=== PATIENT | female | born 1950 | race Caucasian/White ===

== ENCOUNTER → 2017-12-30 14:31 | Outpatient (CLI) | payer BC, MEDICARE, SELFPAY ==
[2017-12-30 15:59] LABS: Absolute Lymphocyte Count 3.05 X10^3/ul (0.83-4.51); Absolute Neutrophil Count 6.2 X10^3/uL (2.0-7.7); Basophil# 0.05 X10^3/uL; Basophil% 0.5 % (0-1); Eosinophil# 0.24 X10^3/uL; Eosinophils% 2.3 % (0-5); Hematocrit 47.7 % (37-47); Hemoglobin 16.3 g/dl (12.0-15.0); Lymphocyte # 3.05 X10^3/ul (4.0); Lymphocyte % 29.4 % (19-41); Mean Corp Hgb Conc 34.2 g/gl (32-36); Mean Corpuscular Hgb 30.6 pg (27.0-32.0); Mean Corpuscular Volume 89.7 fL (81-99); Mean Platelet Vol. 8.7 fl (6.2-12.0); Monocyte# 0.74 X10^3/uL; Monocyte% 7.1 % (0-10); Neutrophil # 6.23 X10^3/uL (2.7-7.7); Neutrophil % 60.2 % (47-70); Platelet Count 525 K/mm3 (150-450); RBC Distribution Width CV 14.9 % (11.6-14.6); RBC Distribution Width SD 48.8 fl (35.1-43.9); Red Blood Count 5.32 M/mm3 (4.2-5.4); White Blood Count 10.4 K/mm3 (4.4-11.0)
[2017-12-30 16:00] LABS: POSITIVE COUNT NO; POSITIVE DIFFERENTIAL NO; POSITIVE MORPHOLOGY NO
[2017-12-30 16:17] LABS: ALB/GLOB Ratio 0.8 RATIO (0.9-2.4); AST(SGOT) 19 U/L (15-37); Alanine Aminotransfer ALT/SGPT 32 U/L (13-56); Albumin, Serum 3.4 g/dL (3.2-5.0); Alkaline Phosphatase 128 U/L (45-117); Anion Gap 6 (5-15); BUN 10 mg/dL (7-18); BUN/Creat Ratio 13.5 RATIO (10-20); Chloride 104 mmol/L (98-107); Creatinine, Serum 0.74 mg/dL (0.55-1.02); EST Glomerular Filtration Rate 83 mL/min (>60); Est Glom Filt Rate - Afr Amer 100 mL/min (>60); Glucose 104 mg/dL (74-106); Potassium 4.1 mmol/L (3.5-5.1); Protein, Total 7.4 g/dL (6.4-8.2); Sodium Level 137 mmol/L (136-145)
== END ==
PROVIDERS: Family Provider Family Medicine; PCP Family Medicine; Visit Provider Internal Medicine Rheumatology
DX: M05.79 Rheumatoid arthritis with rheumatoid factor of multiple sites without organ or systems involvement (principal); F41.9 Anxiety disorder, unspecified; F32.89 Other specified depressive episodes; Z79.899 Other long term (current) drug therapy
CPT/HCPCS: 36415; 80053; 85025

== ENCOUNTER → 2018-02-12 15:03 | Outpatient (CLI) | payer MEDICARE, BC, SELFPAY ==
[2018-02-12 17:59] LABS: Anion Gap 10 (5-15); BUN 16 mg/dL (7-18); BUN/Creat Ratio 24.1 RATIO (10-20); Calcium,Total 9.1 mg/dL (8.5-10.1); Chloride 104 mmol/L (98-107); Creatinine, Serum 0.66 mg/dL (0.55-1.02); EST Glomerular Filtration Rate 94 mL/min (>60); Est Glom Filt Rate - Afr Amer 114 mL/min (>60); Glucose 75 mg/dL (74-106); Potassium 4.2 mmol/L (3.5-5.1); Sodium Level 139 mmol/L (136-145)
== END ==
PROVIDERS: Family Provider Family Medicine; PCP Family Medicine; Visit Provider Otolaryngology Otolaryngology/Facial Plastic Surgery
DX: M06.9 Rheumatoid arthritis, unspecified (principal); Z79.899 Other long term (current) drug therapy
CPT/HCPCS: 36415; 80048

== ENCOUNTER → 2018-03-18 14:50 | Outpatient (CLI) | payer MEDICARE, BC, SELFPAY ==
[2018-03-18 17:35] LABS: Absolute Lymphocyte Count 4.17 X10^3/ul (0.83-4.51); Absolute Neutrophil Count 5.5 X10^3/uL (2.0-7.7); Basophil# 0.04 X10^3/uL; Basophil% 0.4 % (0-1); Eosinophil# 0.23 X10^3/uL; Eosinophils% 2.2 % (0-5); Hemoglobin 15.7 g/dl (12.0-15.0); Lymphocyte # 4.17 X10^3/ul (4.0); Lymphocyte % 39.6 % (19-41); Mean Corp Hgb Conc 34.1 g/gl (32-36); Mean Corpuscular Hgb 30.7 pg (27.0-32.0); Mean Platelet Vol. 8.7 fl (6.2-12.0); Monocyte# 0.59 X10^3/uL; Monocyte% 5.6 % (0-10); Neutrophil # 5.48 X10^3/uL (2.7-7.7); Platelet Count 596 K/mm3 (150-450); RBC Distribution Width CV 14.6 % (11.6-14.6); RBC Distribution Width SD 47.4 fl (35.1-43.9); Red Blood Count 5.11 M/mm3 (4.2-5.4); White Blood Count 10.5 K/mm3 (4.4-11.0)
[2018-03-18 17:58] LABS: POSITIVE COUNT NO; POSITIVE DIFFERENTIAL NO; POSITIVE MORPHOLOGY NO
[2018-03-18 18:01] LABS: ALB/GLOB Ratio 0.8 RATIO (0.9-2.4); AST(SGOT) 50 U/L (15-37); Alanine Aminotransfer ALT/SGPT 67 U/L (13-56); Albumin, Serum 3.4 g/dL (3.2-5.0); Alkaline Phosphatase 120 U/L (45-117); Anion Gap 10 (5-15); BUN 14 mg/dL (7-18); BUN/Creat Ratio 17.7 RATIO (10-20); Chloride 103 mmol/L (98-107); Creatinine, Serum 0.79 mg/dL (0.55-1.02); EST Glomerular Filtration Rate 77 mL/min (>60); Est Glom Filt Rate - Afr Amer 93 mL/min (>60); Globulin 4.1 g/dL (2.2-4.2); Glucose 96 mg/dL (74-106); Potassium 3.8 mmol/L (3.5-5.1); Protein, Total 7.5 g/dL (6.4-8.2); Sodium Level 139 mmol/L (136-145)
== END ==
PROVIDERS: Family Provider Family Medicine; PCP Family Medicine; Visit Provider Internal Medicine Rheumatology
DX: M05.79 Rheumatoid arthritis with rheumatoid factor of multiple sites without organ or systems involvement (principal); Z79.899 Other long term (current) drug therapy; F41.9 Anxiety disorder, unspecified; F32.89 Other specified depressive episodes
CPT/HCPCS: 36415; 80053; 85025

== ENCOUNTER → 2018-04-21 09:35 | Outpatient (CLI) | payer BC, MEDICARE, SELFPAY ==
--- NOTE | 2018-04-21 09:42 | US_ITS ---
STUDY: ABDOMINAL ULTRASOUND - RIGHT UPPER QUADRANT REASON FOR VISIT: Female, 68 years old. ELEVATED LFTS TECHNIQUE: Ultrasound evaluation of the right upper quadrant was performed with real-time and static so-scale imaging. TECHNICAL QUALITY: Adequate. COMPARISON: None. FINDINGS: Liver: The liver measures 14.1 cm. There is normal echogenicity of the liver. The bile ducts are within normal limits. There is hepatic color flow. The direction of portal flow is hepatopetal. There is no demonstrated mass lesion. Gallbladder: Normal distended gallbladder. The gallbladder wall measures 3 mm. There is a negative sonographic Lion's sign. There is no pericholecystic fluid. There is biliary sludge dependent within the gallbladder. There are multiple echogenic structures within the gallbladder, consistent with multiple gallstones. Common Bile Duct (C.B.D.): The common bile duct measures 4 mm. Pancreas: Normal size of the head, body and tail of the pancreas. There is normal echogenicity of the pancreas. There is no demonstrated pancreatic mass or cyst. Right Kidney: Normal size of the right kidney. The right kidney measures 9.6x4x3.4 cm. Normal renal cortex. The right cortex measures 1.4 cm. There is no demonstrated renal mass or cyst. There is no right hydronephrosis. US/Liver IMPRESSION: There is biliary sludge dependent within the gallbladder. There are multiple echogenic structures within the gallbladder, consistent with multiple gallstones. Electronically Signed: Amilcar De Guzman MD at 16:47 EDT , Service support ,
[2018-04-21 12:45] LABS: ALB/GLOB Ratio 0.7 RATIO (0.9-2.4); AST(SGOT) 19 U/L (15-37); Alanine Aminotransfer ALT/SGPT 27 U/L (13-56); Albumin, Serum 2.8 g/dL (3.2-5.0); Alkaline Phosphatase 128 U/L (45-117); Anion Gap 12 (5-15); BUN 14 mg/dL (7-18); BUN/Creat Ratio 17.2 RATIO (10-20); Calcium,Total 8.6 mg/dL (8.5-10.1); Chloride 106 mmol/L (98-107); Creatinine, Serum 0.81 mg/dL (0.55-1.02); EST Glomerular Filtration Rate 74 mL/min (>60); Est Glom Filt Rate - Afr Amer 90 mL/min (>60); Globulin 4.3 g/dL (2.2-4.2); Glucose 79 mg/dL (74-106); Potassium 4.4 mmol/L (3.5-5.1); Protein, Total 7.1 g/dL (6.4-8.2); Sodium Level 139 mmol/L (136-145)
[2018-04-21 13:09] LABS: Absolute Lymphocyte Count 5.37 X10^3/ul (0.83-4.51); Basophil# 0.06 X10^3/uL; Basophil% 0.4 % (0-1); Eosinophil# 0.35 X10^3/uL; Eosinophils% 2.2 % (0-5); Hematocrit 45.3 % (37-47); Hemoglobin 14.7 g/dl (12.0-15.0); Lymphocyte # 5.37 X10^3/ul (4.0); Lymphocyte % 33.6 % (19-41); Mean Corp Hgb Conc 32.5 g/gl (32-36); Mean Corpuscular Hgb 29.5 pg (27.0-32.0); Monocyte# 1.11 X10^3/uL; Neutrophil # 9.02 X10^3/uL (2.7-7.7); Neutrophil % 56.5 % (47-70); Platelet Count 472 K/mm3 (150-450); RBC Distribution Width SD 45.4 fl (35.1-43.9); Red Blood Count 4.98 M/mm3 (4.2-5.4)
[2018-04-21 13:10] LABS: Differential Indicated SCAN CRITERIA MET; POSITIVE COUNT NO; POSITIVE DIFFERENTIAL YES; POSITIVE MORPHOLOGY NO
[2018-04-21 13:36] LABS: Platelet Estimate ADEQUATE (ADEQ); Red Cell Morphology NORM C+C NORMAL (NORM C&C)
== END ==
PROVIDERS: Family Provider Family Medicine; PCP Family Medicine; Visit Provider Internal Medicine Rheumatology
DX: M05.79 Rheumatoid arthritis with rheumatoid factor of multiple sites without organ or systems involvement (principal); Z79.899 Other long term (current) drug therapy; F41.9 Anxiety disorder, unspecified; F32.89 Other specified depressive episodes
CPT/HCPCS: 36415; 76705; 80053; 85025

== ENCOUNTER → 2018-06-14 13:19 | Outpatient (CLI) | payer MEDICARE, BC, SELFPAY ==
[2018-06-14 15:56] LABS: Absolute Lymphocyte Count 1.75 X10^3/ul (0.83-4.51); Absolute Neutrophil Count 10.4 X10^3/uL (2.0-7.7); Basophil# 0.02 X10^3/uL; Basophil% 0.2 % (0-1); Eosinophils% 0.8 % (0-5); Hematocrit 45.1 % (37-47); Hemoglobin 14.8 g/dl (12.0-15.0); Lymphocyte # 1.75 X10^3/ul (4.0); Lymphocyte % 13.7 % (19-41); Mean Corp Hgb Conc 32.8 g/gl (32-36); Mean Corpuscular Hgb 29.3 pg (27.0-32.0); Mean Corpuscular Volume 89.3 fL (81-99); Monocyte# 0.53 X10^3/uL; Monocyte% 4.1 % (0-10); Neutrophil # 10.39 X10^3/uL (2.7-7.7); Platelet Count 469 K/mm3 (150-450); RBC Distribution Width CV 15.2 % (11.6-14.6); RBC Distribution Width SD 48.2 fl (35.1-43.9); Red Blood Count 5.05 M/mm3 (4.2-5.4); White Blood Count 12.8 K/mm3 (4.4-11.0)
[2018-06-14 16:12] LABS: POSITIVE COUNT NO; POSITIVE DIFFERENTIAL NO; POSITIVE MORPHOLOGY NO
[2018-06-14 16:51] LABS: ALB/GLOB Ratio 0.7 RATIO (0.9-2.4); AST(SGOT) 23 U/L (15-37); Alanine Aminotransfer ALT/SGPT 31 U/L (13-56); Alkaline Phosphatase 123 U/L (45-117); Anion Gap 12 (5-15); BUN 10 mg/dL (7-18); BUN/Creat Ratio 12.9 RATIO (10-20); Calcium,Total 8.8 mg/dL (8.5-10.1); Chloride 104 mmol/L (98-107); Creatinine, Serum 0.78 mg/dL (0.55-1.02); EST Glomerular Filtration Rate 79 mL/min (>60); Est Glom Filt Rate - Afr Amer 95 mL/min (>60); Globulin 4.1 g/dL (2.2-4.2); Glucose 100 mg/dL (74-106); Potassium 3.8 mmol/L (3.5-5.1); Protein, Total 7.1 g/dL (6.4-8.2); Sodium Level 139 mmol/L (136-145)
== END ==
PROVIDERS: Family Provider Family Medicine; PCP Family Medicine; Visit Provider Internal Medicine Rheumatology
DX: M05.79 Rheumatoid arthritis with rheumatoid factor of multiple sites without organ or systems involvement (principal); F41.9 Anxiety disorder, unspecified; F32.89 Other specified depressive episodes; Z79.899 Other long term (current) drug therapy
CPT/HCPCS: 36415; 80053; 85025

== ENCOUNTER → 2018-09-08 11:55 | Outpatient (CLI) | payer MEDICARE, BC, SELFPAY ==
[2018-09-08 14:00] LABS: Absolute Lymphocyte Count 3.29 X10^3/ul (0.83-4.51); Absolute Neutrophil Count 7.5 X10^3/uL (2.0-7.7); Basophil# 0.07 X10^3/uL; Basophil% 0.6 % (0-1); Eosinophil# 0.33 X10^3/uL; Eosinophils% 2.8 % (0-5); Hematocrit 45.2 % (37-47); Hemoglobin 15.3 g/dl (12.0-15.0); Lymphocyte # 3.29 X10^3/ul (4.0); Lymphocyte % 27.7 % (19-41); Mean Corp Hgb Conc 33.8 g/gl (32-36); Mean Corpuscular Hgb 30.2 pg (27.0-32.0); Mean Corpuscular Volume 89.3 fL (81-99); Mean Platelet Vol. 8.8 fl (6.2-12.0); Monocyte# 0.66 X10^3/uL; Monocyte% 5.6 % (0-10); Neutrophil # 7.46 X10^3/uL (2.7-7.7); Neutrophil % 62.8 % (47-70); Platelet Count 500 K/mm3 (150-450); RBC Distribution Width CV 15.3 % (11.6-14.6); RBC Distribution Width SD 49.3 fl (35.1-43.9); Red Blood Count 5.06 M/mm3 (4.2-5.4); White Blood Count 11.9 K/mm3 (4.4-11.0)
[2018-09-08 14:01] LABS: POSITIVE COUNT NO; POSITIVE DIFFERENTIAL NO; POSITIVE MORPHOLOGY NO
[2018-09-08 14:17] LABS: ALB/GLOB Ratio 0.8 RATIO (0.9-2.4); AST(SGOT) 25 U/L (15-37); Alanine Aminotransfer ALT/SGPT 49 U/L (13-56); Alkaline Phosphatase 113 U/L (45-117); Anion Gap 8 (5-15); BUN 13 mg/dL (7-18); BUN/Creat Ratio 15.7 RATIO (10-20); Calcium,Total 8.8 mg/dL (8.5-10.1); Chloride 106 mmol/L (98-107); Creatinine, Serum 0.83 mg/dL (0.55-1.02); EST Glomerular Filtration Rate 73 mL/min (>60); Est Glom Filt Rate - Afr Amer 88 mL/min (>60); Globulin 3.9 g/dL (2.2-4.2); Glucose 111 mg/dL (74-106); Potassium 3.7 mmol/L (3.5-5.1); Protein, Total 6.9 g/dL (6.4-8.2); Sodium Level 142 mmol/L (136-145)
== END ==
PROVIDERS: Family Provider Family Medicine; PCP Family Medicine; Referring Provider Internal Medicine Rheumatology; Visit Provider Internal Medicine Rheumatology
DX: M05.79 Rheumatoid arthritis with rheumatoid factor of multiple sites without organ or systems involvement (principal); Z79.899 Other long term (current) drug therapy; F41.9 Anxiety disorder, unspecified; F32.89 Other specified depressive episodes
CPT/HCPCS: 36415; 80053; 85025

== ENCOUNTER → 2018-12-20 12:47 | Outpatient (CLI) | payer MEDICARE, BC, SELFPAY ==
[2018-12-20 14:04] LABS: Absolute Lymphocyte Count 4.16 X10^3/ul (0.83-4.51); Absolute Neutrophil Count 5.3 X10^3/uL (2.0-7.7); Basophil# 0.03 X10^3/uL; Basophil% 0.3 % (0-1); Eosinophil# 0.15 X10^3/uL; Eosinophils% 1.5 % (0-5); Hematocrit 47.1 % (37-47); Hemoglobin 15.8 g/dl (12.0-15.0); Lymphocyte # 4.16 X10^3/ul (4.0); Mean Corp Hgb Conc 33.5 g/gl (32-36); Mean Corpuscular Hgb 30.2 pg (27.0-32.0); Mean Corpuscular Volume 89.9 fL (81-99); Mean Platelet Vol. 8.8 fl (6.2-12.0); Monocyte# 0.51 X10^3/uL; Neutrophil # 5.27 X10^3/uL (2.7-7.7); Platelet Count 582 K/mm3 (150-450); RBC Distribution Width CV 14.4 % (11.6-14.6); RBC Distribution Width SD 47.2 fl (35.1-43.9); Red Blood Count 5.24 M/mm3 (4.2-5.4); White Blood Count 10.1 K/mm3 (4.4-11.0)
[2018-12-20 14:07] LABS: POSITIVE COUNT NO; POSITIVE DIFFERENTIAL NO; POSITIVE MORPHOLOGY NO
[2018-12-20 14:14] LABS: ALB/GLOB Ratio 0.8 RATIO (0.9-2.4); AST(SGOT) 25 U/L (15-37); Alanine Aminotransfer ALT/SGPT 26 U/L (13-56); Albumin, Serum 3.3 g/dL (3.2-5.0); Alkaline Phosphatase 108 U/L (45-117); Anion Gap 6 (5-15); BUN 10 mg/dL (7-18); BUN/Creat Ratio 11.5 RATIO (10-20); Calcium,Total 9.1 mg/dL (8.5-10.1); Chloride 105 mmol/L (98-107); Creatinine, Serum 0.87 mg/dL (0.55-1.02); EST Glomerular Filtration Rate 69 mL/min (>60); Est Glom Filt Rate - Afr Amer 83 mL/min (>60); Globulin 3.9 g/dL (2.2-4.2); Glucose 107 mg/dL (74-106); Potassium 3.5 mmol/L (3.5-5.1); Protein, Total 7.2 g/dL (6.4-8.2); Sodium Level 136 mmol/L (136-145)
== END ==
PROVIDERS: Family Provider Family Medicine; PCP Family Medicine; Referring Provider Internal Medicine Rheumatology; Visit Provider Internal Medicine Rheumatology
DX: M05.70 Rheumatoid arthritis with rheumatoid factor of unspecified site without organ or systems involvement (principal); Z79.899 Other long term (current) drug therapy; F41.9 Anxiety disorder, unspecified; F32.89 Other specified depressive episodes
CPT/HCPCS: 36415; 80053; 85025

== ENCOUNTER → 2019-01-24 16:30 | Outpatient (CLI) | payer MEDICARE, BC, SELFPAY ==
--- NOTE | 2019-01-24 17:07 | MRI_ITS ---
STUDY: MRI LEFT MIDFOOT WITHOUT AND WITH CONTRAST REASON FOR EXAM: Female, 68 years old. Lump on foot. Pain. TECHNIQUE: Standardized fat and water weighted pulse sequences were obtained in all 3 orthogonal planes before and after the administration of 9 cc of Gadavist contrast and intravenous. The area of clinical concern was identified by tissue marker (axial T2 series 5 images 16-19). COMPARISON: None. FINDINGS: Normal talonavicular articulation. Normal calcaneocuboid articulation. Normal navicular-cuneiform articulations. Normal intercuneiform articulations. Normal first tarsometatarsal articulation. Normal Lisfranc ligament. Normal second and third tarsometatarsal articulations. Normal cuboid fourth and cuboid fifth tarsometatarsal articulation. Normal first through fifth metatarsi. Normal tibialis anterior tendon. Normal extensor hallucis longus tendon. Normal extensor digitorum longus tendons. Normal peroneus longus tendon and distal insertion. Normal peroneus brevis tendon and distal insertion. Normal intrinsic muscles of the mid and forefoot region. Normal extensor digitorum brevis muscle. In the third intermetatarsal space, at the tissue marker, there is a large dumbbell shaped lesion which is intermediate to low signal intensity on the short TE images, slightly higher signal intensity on the inversion recovery images and enhances with contrast heterogeneously. The lesion measures approximately 2.6 cm x 0.8 cm x 2.7 cm. This lesion is most compatible with a large Goddard's neuroma (axial series 4, 5 and in images 13-22, sagittal series 7 and 8 images 14-17). 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 Electronically Signed: Vishal Molina MD at 10:52 EDT , Service support ,
== END ==
PROVIDERS: Family Provider Family Medicine; PCP Family Medicine; Referring Provider Podiatrist; Visit Provider Podiatrist
DX: M79.9 Soft tissue disorder, unspecified (principal); M79.672 Pain in left foot; D48.1 Neoplasm of uncertain behavior of connective and other soft tissue; M67.472 Ganglion, left ankle and foot
CPT/HCPCS: 73720; A9575

== ENCOUNTER → 2019-03-14 13:36 | Outpatient (CLI) | payer MEDICARE, BC, SELFPAY ==
[2019-03-14 15:59] LABS: Absolute Lymphocyte Count 4.01 X10^3/ul (0.83-4.51); Basophil# 0.03 X10^3/uL; Basophil% 0.3 % (0-1); Eosinophil# 0.28 X10^3/uL; Eosinophils% 2.5 % (0-5); Hematocrit 46.4 % (37-47); Hemoglobin 15.8 g/dl (12.0-15.0); Lymphocyte # 4.01 X10^3/ul (4.0); Lymphocyte % 36.2 % (19-41); Mean Corp Hgb Conc 34.1 g/gl (32-36); Mean Platelet Vol. 9.4 fl (6.2-12.0); Monocyte# 0.68 X10^3/uL; Monocyte% 6.1 % (0-10); Neutrophil # 6.03 X10^3/uL (2.7-7.7); Neutrophil % 54.5 % (47-70); Platelet Count 527 K/mm3 (150-450); RBC Distribution Width SD 48.4 fl (35.1-43.9); Red Blood Count 5.27 M/mm3 (4.2-5.4); White Blood Count 11.1 K/mm3 (4.4-11.0)
[2019-03-14 16:02] LABS: POSITIVE COUNT NO; POSITIVE DIFFERENTIAL NO; POSITIVE MORPHOLOGY NO
[2019-03-14 16:06] LABS: ALB/GLOB Ratio 0.8 RATIO (0.9-2.4); AST(SGOT) 26 U/L (15-37); Alanine Aminotransfer ALT/SGPT 40 U/L (13-56); Albumin, Serum 3.3 g/dL (3.2-5.0); Alkaline Phosphatase 119 U/L (45-117); Anion Gap 10 (5-15); BUN 16 mg/dL (7-18); BUN/Creat Ratio 18.1 RATIO (10-20); Calcium,Total 9.4 mg/dL (8.5-10.1); Chloride 104 mmol/L (98-107); Creatinine, Serum 0.88 mg/dL (0.55-1.02); EST Glomerular Filtration Rate 68 mL/min (>60); Est Glom Filt Rate - Afr Amer 82 mL/min (>60); Globulin 3.9 g/dL (2.2-4.2); Glucose 87 mg/dL (74-106); Protein, Total 7.2 g/dL (6.4-8.2); Sodium Level 140 mmol/L (136-145)
== END ==
PROVIDERS: Family Provider Family Medicine; PCP Family Medicine; Referring Provider Internal Medicine Rheumatology; Visit Provider Internal Medicine Rheumatology
DX: M05.70 Rheumatoid arthritis with rheumatoid factor of unspecified site without organ or systems involvement (principal); Z79.899 Other long term (current) drug therapy; F41.9 Anxiety disorder, unspecified; F32.89 Other specified depressive episodes
CPT/HCPCS: 36415; 80053; 85025

== ENCOUNTER 2019-04-29 05:27 | Day surgery (SDC) | payer MEDICARE, BC, SELFPAY ==
--- NOTE | 2019-04-26 14:38 | RAD_ITS ---
STUDY: X-RAY CHEST REASON FOR EXAM: Female, 69 years old. Preop for pelvic surgery TECHNIQUE: PA and lateral views of the chest. COMPARISON: None. FINDINGS: There is hyperinflation of the lungs consistent with chronic obstructive lung disease (COPD). There is no demonstrated pleural abnormality. Normal size heart. Normal mediastinum and karson. Normal visualized pulmonary arteries. Normal visualized aortic arch and descending thoracic aorta. There are diffuse degenerative changes of the visualized thoracic spine. Normal visualized ribs, clavicles, and shoulders. There is no demonstrated abnormality of the visualized soft tissue structures of the upper abdomen. RAD/Chest PA and Lateral IMPRESSION: Hyperexpanded lungs with chronic interstitial changes, no superimposed acute pulmonary process Electronically Signed: Julián Gorman MD at 15:05 EDT , Service support ,
--- NOTE | 2019-04-26 14:42 | EKG12_ITS ---
Test Reason : PREOP Blood Pressure : / mmHG Vent. Rate : 071 BPM Atrial Rate : 071 BPM P-R Int : 116 ms QRS Dur : 088 ms QT Int : 384 ms P-R-T Axes : 049 065 059 degrees QTc Int : 417 ms Normal sinus rhythm Possible Left atrial enlargement Borderline ECG Confirmed by ALLEN MOSQUEDA ([id number]), photography editor JOAN YAÑEZ ([id number]) on 04/28/2019 9:59:19 AM Referred By: Ifeoma Meng Confirmed By:ALLEN MOSQUEDA
[2019-04-29] VITALS (7 sets, daily range): BP systolic 143–170; BP diastolic 84–98; PULSE 70–80; RESP 16; TEMP 36.1–36.6; O2SAT 93–96; BMI 19.5
[2019-04-29] MEDS: Bupivacaine Mpf 0.5% 30 ML VIAL (07:30)
--- NOTE | 2019-04-29 07:30 | MASS_PTH ---
PATIENT: BHUPENDRA MANRIQUEZ LOC: [facility] [place] U#:[id number] AGE/SX: 69/F ROOM: RE04/29/[address]: Dr. Ifeoma Meng DPM : 1950 BED: DIS: 04/29/2019 SPEC #: [id number] RECD: 04/29/19 09:47 STATUS: EMANUEL MARY JO #: [id number] SEAN: 04/29/19 07:[address]: Ifeoma Meng DEPT: SURGICAL PATHOLOGY RECD BY: iDo Lopez ENTERED: 04/29/19 10:41 SP TYPE: Mass OTHR DR: Dr. Ralf Ospina III, MD Tissues: Skin of foot, NOS Procedures: PAS Fungus (control) Special Stain Group I Surgery Specimen Level IV AFB Stain (control) HEADER OPERATION: Foot, neuroma/soft tissue mass excision, biopsy PRE-OP DIAGNOSIS: Left foot neuroma/soft tissue mass TISSUE SUBMITTED: Left foot proximal soft tissue mass MICROSCOPIC DIAGNOSIS Soft tissue of left proximal foot, biopsy: Non-necrotizing granulomatous inflammation. Negative for acid-fast bacilli and fungal organisms. See comment. AM:katie 05/02/19 COMMENT AFB and GMS stains with matched controls were used in the evaluation of this case. Clinical correlation is necessary Case has been reviewed in consultation with Dr. Busby who concurs with the above diagnosis. IDC:[email or web address] MICROSCOPIC DESCRIPTION Palisading granulomas are present in the sections. GROSS DESCRIPTION Received in fixative is one container labeled with the patient's name and designated left foot proximal soft tissue mass. The specimen consists of a piece of hanna soft tissue measuring 3 x 1.5 x 0.5 cm. A suture is noted, however, the specimen is not oriented. The specimen is inked, serially sectioned and submitted entirely in two cassettes. / SJ:katie 04/29/19 TC:3 CPT: 18663, 62452 x2
--- NOTE | 2019-04-29 09:07 | DCINST_ITS ---
Discharge Diet: No Restrictions Weight Bearing Status: No weight bearing - use crutches from home. wear surgical shoe Keep extremity elevated above heart level: Left Leg Call your doctor if your incision/area has: Continuous Slow Oozing, Sudden Increased Bleeding, Increased Pain/ Swelling, Increased Redness, Foul Smelling Discharge, Swelling at the incision site Call your doctor if you observe: Fever of 101 or Higher, Calf discomfort, Uncontrolled pain Cleanse incision/area with: Keep Dressing Clean & Dry Allergies/Adverse Reactions: Allergies azithromycin [From Zithromax Z-Dakotah] Allergy (Verified 04/22/19 10:22) Rash Medications to take at Discharge Duloxetine Hcl [Cymbalta] 30 mg PO BID 04/22/19 Folic Acid 2 mg PO DAILY 04/22/19 Latanoprost 0.005% [Xalatan Opthalmic] 1 drp EACH EYE QHS 04/22/19 Methotrexate 12.5 mg PO FR 04/22/19 Prednisone 10 mg PO DAILY PRN 04/22/19 Primary Care Physician: Ralf Ospina III, MD [Primary Care Provider] - Test Results: Test results from this visit will be discussed in further detail at your follow- up appointment, if applicable. Please Follow Up With: Ifeoma Meng DPM When: [facility]; call [phone] sooner if questions. Proposed Discharge Date: 04/29/19
--- NOTE | 2019-04-29 09:13 | PCM.OPRPT ---
Problem List (1) Disorder of soft tissue Status: Chronic (2) Foot pain, left Status: Chronic Report of Operation Date of Procedure: 04/29/19 Pre-Operative Diagnosis: Soft tissue mass possible neuroma left foot. Pain left foot Post-Operative Diagnosis: Soft tissue mass left foot. Pain left foot Surgery/Procedure Performed:: Excision of soft tissue mass left foot Description of Surgical Findings:: Hemostasis: Well-padded pneumatic left ankle tourniquet 250 mmHg Materials: 3-0 Vicryl, 3-0 nylon, 5-0 nylon Complications: None The patient was transferred to the PACU vital signs stable and vascular status intact left lower extremity. She will be discharged home upon continued stability. Pathology specimen report is pending and the specimen was tagged at the proximal aspect. To ice and elevate for pain and inflammation management. To remain nonweightbearing. Postoperative orders were entered electronically. order processing manager: none - Crown Presser: Issac Rivera, PGY1. Surgeon: Ifeoma Meng DPM, EDA Type of Anesthesia:: Local MAC - Preoperative: One-to-one mixture of 1% lidocaine plain and 0.5% Marcaine plain administered in second, third, fourth ray block fashion left foot, 16 cc Postoperative: One-to-one mixture 1% lidocaine plain and 0.5% Marcaine plain administered and local infiltrated manner left foot, 6 cc Specimen's removed: Soft tissue mass left foot (tag proximal) Estimated Blood Loss (mL): < 100 mL Description of Procedure: Indications: This is a 69-year-old female with significant past medical history of anxiety, rheumatoid arthritis, depression, and history of smoking continues to have an intermittent fluid filled mass to the prominent ball of her left foot that is painful with ambulation. She has failed conservative care and this is affecting her daily activities. She has a palpable soft masses that seems related to her third metatarsal head and sometimes to the dorsal aspect of the third intermetatarsal space. Negative Flavio sign is noted. She does have some intermittent paresthesias to the third toe. Neurovascular status is intact with palpable pulses and brisk capillary refill time to all digits of the left foot. X-rays did not demonstrate any osseous destruction, fracture, dislocation or periosteal changes adjacent to the suspected soft tissue mass. She does have dorsal contraction of lesser digits. The MRI did demonstrate a soft tissue mass to the third interspace which measured approximately 2.5 cm x 0.8 cm x 2.7 cm which appears to be pretty well delineated with decreased hypointensity noted on that T1 and T2 imaging studies. This did not appear to be infiltrative. The preoperative indications, planned procedure, possible benefits, risk, complication, and anticipated healing commands were discussed in detail the patient. She understands and elects to proceed with surgery at this time. Informed surgical consent and the surgical limb were signed. She understands that risks and complications may include but not limited to the following: pain, swelling, scarring, recurrence, need for further work-up or surgeries, blood clot, allergic reaction, floating toe, numbness to the toes, chronic pain, loss of limb, function, life. All of her questions were answered. I did review her preoperative medical clearance as well as her preoperative diagnostic data. Smoking cessation was encouraged. She will also avoid prednisone use during the operative time frame. Procedure in detail: The patient was transported to the operating room via cart placed on the operating table in the supine position. Final verification of the patient, surgery, and limb designation was performed via the timeout procedure. Preoperative local anesthetic was administered by the podiatry team. MAC anesthesia was initiated by the anesthesia team. The left lower extremity was prepped and draped in the usual aseptic manner. The left lower extremity was exsanguinated with an Esmarch bandage and the tourniquet was inflated at this time. Surgery began the following manner: Attention was first directed to the plantar aspect of the left foot in which a curvilinear incision was made starting at the anterior plantar third interspace extending to the proximal aspect of the third metatarsal head taking care to avoid incising directly over the prominent weightbearing surface. The incision was made through the skin and blunt dissection was performed gently with a hemostat. Care was taken to identify, protect, and retract all neurovascular structures at this point and throughout the remainder of surgery. Soft tissue engorged with fluid was immediately identified and appeared to be loculated and this was gently freed from adjacent tissues. There is no necrosis or signs of infection. This did appear to go deep into the third interspace and after the plantar aspect of this soft tissue mass was freed from adjacent structures. Attention was next directed to the dorsal aspect of the left foot to further resect the remainder of the soft tissue mass. A 1/2 cm curvilinear incision was made to the dorsal aspect of the third interspace in which the cystic soft tissue structures and appear to be communicating to the plantar and intermetatarsal soft tissue mass. The border of the resected soft tissue structure located plantar proximal was tied off with Vicryl suture and after this was resected the mass did appear to decrease in size in which it no longer appeared engorged. This was gently freed and sent as a pathology specimen. This measured about 2.8 x 1.5 x 1 cm. A tag was applied to the proximal dorsal aspect. The surgical wound site was irrigated with normal saline. The tourniquet was deflated at this time and hemostasis was controlled with minimal electrocauterization and pressure. No pulsatile bleeding was noted. Brisk capillary refill time was noted to all digits of the left foot. Anatomically, this did not seem consistent with a sigala neuroma as suggested by the MRI. Differential diagnoses include rheumatiod nodule, ganglion, versus other soft tissue mass. Saline irrigation was performed. Deep closure was achieved with Vicryl. The skin was reapproximated utilizing horizontal mattress technique to the dorsal and plantar aspect with nylon suture. A postoperative injection was administered at this time. A postoperative dressing was next applied with Betadine soaked Adaptic, gauze, Kerlix, and Thong wrap. After procedure: The patient tolerated the procedure and anesthesia well. She was transported to the PACU with vital signs stable and vascular status intact to the left lower extremity. She will be discharged home upon continued stability. She was advised to remain nonweightbearing to the left lower extremity with the surgical shoe and crutches. She was advised to ice and elevate for pain and inflammation management. To continue smoking cessation. Her rheumatoid arthritis is noted and I advised her to reduce prednisone use during the postoperative period if possible. A postoperative order was also provided for postoperative pain medication and she was advised on safe and proper use. She was advised to keep the dressing clean, dry, and intact until she [facility]. All of her orders were entered electronically. Her pathology specimen that was obtained is pending. Ifeoma Meng DPM, FACFAS [facility] - Complications none - Admit VTE Documentation VTE Present on Admission: No VTE Mechan Device Prophylaxis: SCD's VTE Pharm Prophylaxis ordered?: No Reason prophylaxis not ordered:: Procedure Not Indicated
== END 2019-04-29 10:19 | disposition home or self-care (01) ==
LOC: SDC 05:28 → AC 05:28
PROVIDERS: Family Provider Family Medicine; PCP Family Medicine; Referring Provider Podiatrist; Visit Provider Podiatrist
PROC: (CPT 28039; principal; 2019-04-29 07:15)
DX: R22.42 Localized swelling, mass and lump, left lower limb (principal); M79.672 Pain in left foot; F41.9 Anxiety disorder, unspecified; M06.9 Rheumatoid arthritis, unspecified; F32.9 Major depressive disorder, single episode, unspecified; Z87.891 Personal history of nicotine dependence
CPT/HCPCS: 28039; 71046; 88305; 88312; 93005; J7120

== ENCOUNTER → 2019-06-07 15:28 | Outpatient (CLI) | payer MEDICARE, BC, SELFPAY ==
[2019-04-29 05:59] VITALS: BMI 19.5
[2019-06-07 17:32] LABS: Absolute Lymphocyte Count 5.48 X10^3/uL (0.83-4.51); Absolute Neutrophil Count 8.3 X10^3/uL (2.0-7.7); Basophil% 0.7 % (0-1); Eosinophil# 0.32 X10^3/uL; Eosinophils% 2.1 % (0-5); Hematocrit 48.5 % (37-47); Hemoglobin 15.8 g/dL (12.0-15.0); Lymphocyte # 5.48 X10^3/ul (4.0); Lymphocyte % 36.1 % (19-41); Mean Corp Hgb Conc 32.6 g/dL (32-36); Mean Corpuscular Hgb 29.6 pg (27.0-32.0); Mean Corpuscular Volume 90.8 fL (81-99); Mean Platelet Vol. 8.9 fl (6.2-12.0); Monocyte# 0.86 X10^3/uL; Monocyte% 5.7 % (0-10); NRBC Flagged by Analyzer 0 % (0-5); Neutrophil # 8.31 X10^3/uL (2.7-7.7); Neutrophil % 54.5 % (47-70); POSITIVE DIFFERENTIAL YES; Platelet Count 498 K/mm3 (150-450); RBC Distribution Width CV 13.7 % (11.6-14.6); RBC Distribution Width SD 45.7 fl (35.1-43.9); Red Blood Count 5.34 M/mm3 (4.2-5.4); White Blood Count 15.2 K/mm3 (4.4-11.0)
[2019-06-07 17:34] LABS: Differential Indicated SCAN CRITERIA MET
[2019-06-07 17:59] LABS: ALB/GLOB Ratio 0.7 RATIO (0.9-2.4); AST(SGOT) 13 U/L (15-37); Alanine Aminotransfer ALT/SGPT 20 U/L (13-56); Albumin, Serum 3.1 g/dL (3.2-5.0); Alkaline Phosphatase 125 U/L (45-117); Anion Gap 4 (5-15); BUN 19 mg/dL (7-18); Calcium,Total 9.1 mg/dL (8.5-10.1); Chloride 105 mmol/L (98-107); Creatinine, Serum 0.79 mg/dL (0.55-1.02); EST Glomerular Filtration Rate 76 mL/min (>60); Est Glom Filt Rate - Afr Amer 93 mL/min (>60); Globulin 4.3 g/dL (2.2-4.2); Glucose 81 mg/dL (74-106); Protein, Total 7.4 g/dL (6.4-8.2); Sodium Level 137 mmol/L (136-145)
[2019-06-07 18:08] LABS: Differential Comment SCANNED
== END ==
PROVIDERS: Family Provider Family Medicine; PCP Family Medicine; Referring Provider Internal Medicine Rheumatology; Visit Provider Internal Medicine Rheumatology
DX: M05.70 Rheumatoid arthritis with rheumatoid factor of unspecified site without organ or systems involvement (principal); Z79.899 Other long term (current) drug therapy; F41.9 Anxiety disorder, unspecified; F32.89 Other specified depressive episodes
CPT/HCPCS: 36415; 80053; 85025

== ENCOUNTER → 2019-08-10 13:17 | Outpatient (CLI) | payer MEDICARE, BC, SELFPAY ==
[2019-04-29 05:59] VITALS: BMI 19.5
[2019-08-10 14:11] LABS: Absolute Lymphocyte Count 3.85 X10^3/uL (0.83-4.51); Absolute Neutrophil Count 7.5 X10^3/uL (2.0-7.7); Basophil% 0.8 % (0-1); Eosinophil# 0.35 X10^3/uL; Eosinophils% 2.8 % (0-5); Hematocrit 47.6 % (37-47); Hemoglobin 15.7 g/dL (12.0-15.0); Lymphocyte # 3.85 X10^3/ul (4.0); Lymphocyte % 30.8 % (19-41); Mean Corpuscular Hgb 28.8 pg (27.0-32.0); Mean Corpuscular Volume 87.3 fL (81-99); Mean Platelet Vol. 8.7 fl (6.2-12.0); Monocyte# 0.69 X10^3/uL; Monocyte% 5.5 % (0-10); NRBC Flagged by Analyzer 0 % (0-5); Neutrophil # 7.46 X10^3/uL (2.7-7.7); Neutrophil % 59.5 % (47-70); Platelet Count 498 K/mm3 (150-450); RBC Distribution Width CV 14.5 % (11.6-14.6); RBC Distribution Width SD 45.2 fl (35.1-43.9); Red Blood Count 5.45 M/mm3 (4.2-5.4); White Blood Count 12.5 K/mm3 (4.4-11.0)
[2019-08-10 14:38] LABS: ALB/GLOB Ratio 0.8 RATIO (0.9-2.4); AST(SGOT) 14 U/L (15-37); Alanine Aminotransfer ALT/SGPT 19 U/L (13-56); Alkaline Phosphatase 130 U/L (45-117); Anion Gap 10 (5-15); BUN 11 mg/dL (7-18); BUN/Creat Ratio 12.6 RATIO (10-20); Calcium,Total 8.8 mg/dL (8.5-10.1); Chloride 106 mmol/L (98-107); Creatinine, Serum 0.87 mg/dL (0.55-1.02); EST Glomerular Filtration Rate 68 mL/min (>60); Est Glom Filt Rate - Afr Amer 83 mL/min (>60); Glucose 124 mg/dL (74-106); Potassium 3.8 mmol/L (3.5-5.1); Sodium Level 139 mmol/L (136-145)
== END ==
PROVIDERS: Family Provider Family Medicine; PCP Family Medicine; Referring Provider Internal Medicine Rheumatology; Visit Provider Internal Medicine Rheumatology
DX: M05.70 Rheumatoid arthritis with rheumatoid factor of unspecified site without organ or systems involvement (principal); Z79.899 Other long term (current) drug therapy; F41.9 Anxiety disorder, unspecified; F32.89 Other specified depressive episodes
CPT/HCPCS: 36415; 80053; 85025

== ENCOUNTER → 2019-11-03 10:48 | Outpatient (CLI) | payer MEDICARE, BC, SELFPAY ==
[2019-04-29 05:59] VITALS: BMI 19.5
[2019-11-03 12:21] LABS: Absolute Lymphocyte Count 4.09 X10^3/uL (0.83-4.51); Basophil# 0.12 X10^3/uL; Basophil% 0.9 % (0-1); Eosinophil# 0.43 X10^3/uL; Eosinophils% 3.2 % (0-5); Hematocrit 48.5 % (37-47); Hemoglobin 15.7 g/dL (12.0-15.0); Lymphocyte # 4.09 X10^3/ul (4.0); Lymphocyte % 30.3 % (19-41); Mean Corp Hgb Conc 32.4 g/dL (32-36); Mean Corpuscular Hgb 29.2 pg (27.0-32.0); Mean Corpuscular Volume 90.3 fL (81-99); Mean Platelet Vol. 8.8 fl (6.2-12.0); Monocyte# 0.82 X10^3/uL; Monocyte% 6.1 % (0-10); NRBC Flagged by Analyzer 0 % (0-5); Neutrophil # 7.96 X10^3/uL (2.7-7.7); Neutrophil % 58.8 % (47-70); Platelet Count 560 K/mm3 (150-450); RBC Distribution Width CV 14.9 % (11.6-14.6); Red Blood Count 5.37 M/mm3 (4.2-5.4); White Blood Count 13.5 K/mm3 (4.4-11.0)
[2019-11-03 12:37] LABS: ALB/GLOB Ratio 0.8 RATIO (0.9-2.4); AST(SGOT) 14 U/L (15-37); Alanine Aminotransfer ALT/SGPT 16 U/L (13-56); Alkaline Phosphatase 111 U/L (45-117); Anion Gap 3 (5-15); BUN 13 mg/dL (7-18); Calcium,Total 9.1 mg/dL (8.5-10.1); Chloride 107 mmol/L (98-107); Creatinine, Serum 0.87 mg/dL (0.55-1.02); EST Glomerular Filtration Rate 69 mL/min (>60); Est Glom Filt Rate - Afr Amer 83 mL/min (>60); Globulin 3.8 g/dL (2.2-4.2); Glucose 107 mg/dL (74-106); Potassium 4.5 mmol/L (3.5-5.1); Protein, Total 6.8 g/dL (6.4-8.2); Sodium Level 138 mmol/L (136-145)
== END ==
PROVIDERS: PCP Family Medicine; Referring Provider Internal Medicine Rheumatology; Visit Provider Internal Medicine Rheumatology
DX: M05.70 Rheumatoid arthritis with rheumatoid factor of unspecified site without organ or systems involvement (principal); Z79.899 Other long term (current) drug therapy; F41.9 Anxiety disorder, unspecified; F32.89 Other specified depressive episodes; H40.9 Unspecified glaucoma
CPT/HCPCS: 36415; 80053; 85025

== ENCOUNTER → 2019-12-22 13:00 | Outpatient (CLI) | payer MEDICARE, BC, SELFPAY ==
[2019-04-29 05:59] VITALS: BMI 19.5
[2019-12-22 15:45] LABS: Absolute Lymphocyte Count 4.02 X10^3/uL (0.83-4.51); Basophil# 0.09 X10^3/uL; Basophil% 0.8 % (0-1); Eosinophil# 0.35 X10^3/uL; Eosinophils% 3.1 % (0-5); Hematocrit 47.8 % (37-47); Hemoglobin 15.3 g/dL (12.0-15.0); Lymphocyte # 4.02 X10^3/ul (4.0); Lymphocyte % 35.9 % (19-41); Mean Corpuscular Hgb 29.2 pg (27.0-32.0); Mean Corpuscular Volume 91.2 fL (81-99); Monocyte# 0.62 X10^3/uL; Monocyte% 5.5 % (0-10); NRBC Flagged by Analyzer 0 % (0-5); Neutrophil # 6.03 X10^3/uL (2.7-7.7); Neutrophil % 53.9 % (47-70); Platelet Count 468 K/mm3 (150-450); RBC Distribution Width CV 15.5 % (11.6-14.6); RBC Distribution Width SD 49.6 fl (35.1-43.9); Red Blood Count 5.24 M/mm3 (4.2-5.4); White Blood Count 11.2 K/mm3 (4.4-11.0)
[2019-12-22 15:55] LABS: ALB/GLOB Ratio 0.7 RATIO (0.9-2.4); AST(SGOT) 19 U/L (15-37); Alanine Aminotransfer ALT/SGPT 24 U/L (13-56); Albumin, Serum 3.1 g/dL (3.2-5.0); Alkaline Phosphatase 117 U/L (45-117); Anion Gap 6 (5-15); BUN 12 mg/dL (7-18); BUN/Creat Ratio 15.5 RATIO (10-20); Calcium,Total 9.3 mg/dL (8.5-10.1); Chloride 104 mmol/L (98-107); Creatinine, Serum 0.78 mg/dL (0.55-1.02); EST Glomerular Filtration Rate 78 mL/min (>60); Est Glom Filt Rate - Afr Amer 95 mL/min (>60); Globulin 4.3 g/dL (2.2-4.2); Glucose 106 mg/dL (74-106); Potassium 4.3 mmol/L (3.5-5.1); Protein, Total 7.4 g/dL (6.4-8.2); Sodium Level 138 mmol/L (136-145)
== END ==
PROVIDERS: PCP Family Medicine; Referring Provider Internal Medicine Rheumatology; Visit Provider Internal Medicine Rheumatology
DX: M05.70 Rheumatoid arthritis with rheumatoid factor of unspecified site without organ or systems involvement (principal); Z79.899 Other long term (current) drug therapy; F41.9 Anxiety disorder, unspecified; F32.89 Other specified depressive episodes; H40.9 Unspecified glaucoma
CPT/HCPCS: 36415; 80053; 85025

== ENCOUNTER → 2021-06-24 13:34 | Outpatient (CLI) | payer MEDICARE, OTHER, SELFPAY ==
--- NOTE | 2021-06-24 13:42 | RAD_ITS ---
STUDY: X-RAY - RIGHT WRIST REASON FOR EXAM: Female, 71 years old. RHEUMATOID ARTHRITIS TECHNIQUE: 2 view(s) of the wrist were obtained. Right COMPARISON: None. FINDINGS: There is demineralization of the radius and ulna. There is degenerative arthrosis of the radiocarpal articulation. Normal distal radioulnar articulation. There is demineralization of the carpal bones. There is degenerative arthrosis of the carpal articulations. There is degenerative arthrosis of the carpometacarpal articulation of the thumb. Normal second through fifth carpometacarpal articulations. Question old healed fracture of the base of the fifth metacarpal bone. There is demineralization of the metacarpal bones. Soft tissue swelling around the wrist. RAD/Wrist 2 Views IMPRESSION: Degenerative findings of the wrist. Electronically Signed: Amilcar De Guzman MD at 15:41 EDT , Service support ,
--- NOTE | 2021-06-24 13:42 | RAD_ITS ---
STUDY: X-RAY - LEFT WRIST REASON FOR EXAM: Female, 71 years old. RHEUMATOID ARTHRITIS TECHNIQUE: 2 view(s) of the wrist were obtained. COMPARISON: None. FINDINGS: There is demineralization of the radius and ulna. There is degenerative arthrosis of the radiocarpal articulation. Normal distal radioulnar articulation. There is demineralization of the carpal bones. There is degenerative arthrosis of the carpal articulations. There is degenerative arthrosis of the carpometacarpal articulation of the thumb. Normal second through fifth carpometacarpal articulations. There is demineralization of the metacarpal bones. Soft tissue swelling around the wrist. RAD/Wrist 2 Views IMPRESSION: Degenerative findings of the wrist. Electronically Signed: Amilcar De Guzman MD at 15:40 EDT , Service support ,
== END ==
DX: M06.9 Rheumatoid arthritis, unspecified (principal)
CPT/HCPCS: 73100

== ENCOUNTER → 2021-10-25 14:06 | Outpatient (CLI) | payer MEDICARE, OTHER, SELFPAY ==
[2021-10-28 15:09] LABS: Hematocrit 45.9 % (37-47); Hemoglobin 15.4 g/dL (12.0-15.0); Mean Corp Hgb Conc 33.6 g/dL (32-36); Mean Corpuscular Hgb 28.3 pg (27.0-32.0); Mean Corpuscular Volume 84.2 fL (81-99); Mean Platelet Vol. 9.1 fl (6.2-12.0); Platelet Count 649 K/mm3 (150-450); RBC Distribution Width CV 12.8 % (11.6-14.6); RBC Distribution Width SD 38.7 fl (35.1-43.9); Red Blood Count 5.45 M/mm3 (4.2-5.4); White Blood Count 13.5 K/mm3 (4.4-11.0)
[2021-10-28 15:30] LABS: ALB/GLOB Ratio 0.6 RATIO (0.9-2.4); AST(SGOT) 11 U/L (15-37); Alanine Aminotransfer ALT/SGPT 12 U/L (13-56); Albumin, Serum 2.8 g/dL (3.2-5.0); Alkaline Phosphatase 118 U/L (45-117); Anion Gap 8 (5-15); BUN 7 mg/dL (7-18); BUN/Creat Ratio 9.3 RATIO (10-20); Calcium,Total 9.8 mg/dL (8.5-10.1); Chloride 103 mmol/L (98-107); Creatinine, Serum 0.75 mg/dL (0.55-1.02); EST Glomerular Filtration Rate 81 mL/min (>60); Est Glom Filt Rate - Afr Amer 98 mL/min (>60); Glucose 90 mg/dL (74-106); Potassium 4.1 mmol/L (3.5-5.1); Protein, Total 7.8 g/dL (6.4-8.2); Sodium Level 135 mmol/L (136-145)
[2021-10-29 09:26] LABS: Hepatitis B Surface Antibody Non-Reactive; Hepatitis B Surface Antigen Non-Reactive (Nonreactive); Hepatitis C Antibody Non-Reactive (Nonreactive)
[2021-10-30 22:06] LABS: QNTFERON TB Mitogen Value > 10.00 IU/mL (.); QNTFERON TB Nil Value 0 IU/mL (.); QNTFERON TB1+ Ag Value 0 IU/mL (.); QNTFERON TB2+ Ag Value 0 IU/mL (.)
[2021-10-31 07:46] LABS: Hepatitis B Core Ab Total Negative (Negative); QNTIFERON TB Positive Criteria Negative (Negative)
== END ==
DX: M06.9 Rheumatoid arthritis, unspecified (principal)
CPT/HCPCS: 36415; 80053; 85027; 86480; 86704; 86706; 86803; 87340

== ENCOUNTER → 2022-03-28 | Outpatient (CLI) | payer MEDICARE, OTHER, SELFPAY ==
[2022-03-28 12:35] VITALS: BP 171/104; PULSE 70; RESP 16; TEMP 36.6; O2SAT 94; BMI 17.7
[2022-03-28] MEDS: 0.9% NaCl IVPB Med Flush (250 mL) 20 ML IV (12:52)
[2022-03-28 13:32] VITALS: BP 167/88; PULSE 72; RESP 16; TEMP 36.7; O2SAT 95
[2022-03-28 13:46] VITALS: BP 167/88; PULSE 98; RESP 16; O2SAT 95
== END | disposition home or self-care (01) ==
LOC: MEDOUTP 12:25
PROVIDERS: Referring Provider Internal Medicine Rheumatology; Visit Provider Internal Medicine Rheumatology
DX: M06.9 Rheumatoid arthritis, unspecified (principal)
CPT/HCPCS: 96365; 96413; J7050; A4216; J0129

== ENCOUNTER → 2022-04-25 | Outpatient (CLI) | payer MEDICARE, OTHER, SELFPAY ==
[2022-04-25 12:37] VITALS: BP 153/94; PULSE 76; RESP 16; TEMP 36.6; O2SAT 96; BMI 17.7
[2022-04-25] MEDS: 0.9% NaCl Peripheral Flush Adult/Peds IV (12:44)
[2022-04-25] MEDS: 0.9% NaCl IVPB Med Flush (250 mL) 15 ML IV (13:05)
[2022-04-25 13:43] VITALS: BP 155/93; PULSE 70; RESP 16; TEMP 35.6; O2SAT 97
== END | disposition home or self-care (01) ==
PROVIDERS: Referring Provider Internal Medicine Rheumatology; Visit Provider Internal Medicine Rheumatology
DX: M06.9 Rheumatoid arthritis, unspecified (principal)
CPT/HCPCS: 96365; J7050; A4216; J0129

== ENCOUNTER → 2022-05-23 | Outpatient (CLI) | payer MEDICARE, OTHER, SELFPAY ==
[2022-05-23 12:03] VITALS: BP 131/82; PULSE 78; RESP 16; TEMP 35.8; O2SAT 94; BMI 17.6
[2022-05-23] MEDS: 0.9% NaCl IVPB Med Flush (250 mL) 20 ML IV (12:25)
[2022-05-23 13:18] VITALS: BP 131/61; PULSE 71; RESP 16; O2SAT 95
== END | disposition home or self-care (01) ==
LOC: MEDOUTP 11:59
PROVIDERS: Referring Provider Internal Medicine Rheumatology; Visit Provider Internal Medicine Rheumatology
DX: M06.9 Rheumatoid arthritis, unspecified (principal)
CPT/HCPCS: 96365; J7050; A4216; J0129

== ENCOUNTER → 2022-06-20 | Outpatient (CLI) | payer MEDICARE, OTHER, SELFPAY ==
[2022-06-20 12:24] VITALS: BP 166/99; PULSE 69; RESP 16; TEMP 35.7; O2SAT 97; BMI 18.5
[2022-06-20] MEDS: 0.9% NaCl IVPB Med Flush (250 mL) 20 ML IV (12:28)
[2022-06-20 13:18] VITALS: BP 152/88; PULSE 61
== END | disposition home or self-care (01) ==
LOC: MEDOUTP 12:03
PROVIDERS: Referring Provider Internal Medicine Rheumatology; Visit Provider Internal Medicine Rheumatology
DX: M06.9 Rheumatoid arthritis, unspecified (principal)
CPT/HCPCS: 96365; J7050; A4216; J0129

== ENCOUNTER → 2022-07-01 | Outpatient (CLI) | payer MEDICARE, OTHER, SELFPAY ==
[2022-07-01 15:29] LABS: Erythrocyte Sedimentation Rate 32 mm/hr (0-30)
[2022-07-01 15:31] LABS: Absolute Lymphocyte Count 4.38 X10^3/uL (0.83-4.51); Absolute Neutrophil Count 5.8 X10^3/uL (2.0-7.7); Basophil# 0.11 X10^3/uL; Eosinophils% 2.7 % (0-5); Hemoglobin 16.9 g/dL (12.0-15.0); Lymphocyte # 4.38 X10^3/ul (0.83-4.51); Mean Corp Hgb Conc 33.1 g/dL (32-36); Mean Corpuscular Hgb 28.7 pg (27.0-32.0); Mean Corpuscular Volume 86.6 fL (81-99); Mean Platelet Vol. 8.9 fl (6.2-12.0); Monocyte# 0.61 X10^3/uL; Monocyte% 5.4 % (0-10); NRBC Flagged by Analyzer 0 % (0-5); Neutrophil # 5.81 X10^3/uL (2.7-7.7); Neutrophil % 51.6 % (47-70); Platelet Count 538 K/mm3 (150-450); RBC Distribution Width CV 14.5 % (11.6-14.6); RBC Distribution Width SD 46.1 fl (35.1-43.9); Red Blood Count 5.89 M/mm3 (4.2-5.4); White Blood Count 11.2 K/mm3 (4.4-11.0)
[2022-07-01 15:46] LABS: Vitamin B12 358 pg/mL (211-911)
[2022-07-01 16:05] LABS: ALB/GLOB Ratio 0.7 RATIO (0.9-2.4); AST(SGOT) 16 U/L (15-37); Alanine Aminotransfer ALT/SGPT 16 U/L (13-56); Albumin, Serum 3.1 g/dL (3.2-5.0); Alkaline Phosphatase 121 U/L (45-117); Anion Gap 9 (5-15); BUN 7 mg/dL (7-18); BUN/Creat Ratio 9.5 RATIO (10-20); Calcium,Total 9.6 mg/dL (8.5-10.1); Chloride 103 mmol/L (98-107); Creatinine, Serum 0.74 mg/dL (0.55-1.02); EST Glomerular Filtration Rate 82 mL/min (>60); Est Glom Filt Rate - Afr Amer 99 mL/min (>60); Ferritin 102 ng/mL (8-252); Globulin 4.3 g/dL (2.2-4.2); Glucose 97 mg/dL (74-106); Potassium 4.2 mmol/L (3.5-5.1); Protein, Total 7.4 g/dL (6.4-8.2); Sodium Level 139 mmol/L (136-145); Thyroid Stim Hormone (TSH) 2.08 uIU/mL (0.358-3.74)
== END | disposition home or self-care (01) ==
LOC: MFPLAB 12:31
PROVIDERS: PCP Family Medicine; Referring Provider Family Medicine; Visit Provider Family Medicine
DX: R53.83 Other fatigue (principal); M06.9 Rheumatoid arthritis, unspecified
CPT/HCPCS: 36415; 80053; 82306; 82607; 82728; 84443; 85025; 85652; 86140

== ENCOUNTER → 2022-07-18 | Outpatient (CLI) | payer MEDICARE, OTHER, SELFPAY ==
[2022-07-18 12:33] VITALS: BP 139/85; PULSE 74; RESP 16; O2SAT 96; BMI 18.3
[2022-07-18] MEDS: 0.9% NaCl Peripheral Flush Adult/Peds IV (12:40)
[2022-07-18] MEDS: 0.9% NaCl IVPB Med Flush (250 mL) 20 ML IV (12:44)
[2022-07-18 13:54] VITALS: BP 131/82; PULSE 67; RESP 16; O2SAT 97
== END | disposition home or self-care (01) ==
LOC: MEDOUTP 12:25
PROVIDERS: PCP Family Medicine; Referring Provider Internal Medicine Rheumatology; Visit Provider Internal Medicine Rheumatology
DX: M06.9 Rheumatoid arthritis, unspecified (principal)
CPT/HCPCS: 96365; J7050; A4216; J0129

== ENCOUNTER → 2022-07-22 | Outpatient (CLI) | payer MEDICARE, OTHER, SELFPAY ==
--- NOTE | 2022-07-22 12:47 | BI_ITS ---
MAMMOGRAPHY - BILATERAL SCREENING REASON FOR EXAM: Female, 72 years old. Routine annual screening examination. PERTINENT HISTORY: Non-contributory. TECHNIQUE: Digital bilateral breast buck (3D mammographic acquisition) in the CC and MLO projections. 2-D mediolateral oblique (MLO) and craniocaudad (CC) views of both breasts were obtained. CAD: Full Field Digital Mammography with Computer Added Detection was performed. COMPARISON: No comparison mammograms available at this time. If any prior films become available, an addendum to this report can be generated. FINDINGS: Breast Composition: The breasts are heterogeneously dense, which may obscure small masses. There are no dominant masses or suspicious calcifications. No other significant abnormalities are identified. BI/SCRN MAMM (CAD)W/BUCK BILAT IMPRESSION: Negative screening mammogram. Yearly followup mammogram recommended. (A) ASSESSMENT CATEGORY: BIRADS Category 1: Negative. A letter regarding these results will be sent to the patient by the facility within 30 days. Approximately 10% of breast cancers are not detected by mammography. A normal mammogram should not delay biopsy of a clinically suspicious abnormality. [id number] Electronically Signed: Michael Leon MD at 13:50 EDT ,
--- NOTE | 2022-07-22 13:55 | CT_ITS ---
STUDY: LOW DOSE CT LUNG CANCER SCREENING REASON FOR EXAM: Female, 72 years old. Lung cancer screening -- 50 pk yr hx;current smoker;asymptomatic RADIATION DOSAGE (If Supplied By Facility): CTDIvol = ( 2.01 ) mGy, DLP = ( 69.97 ) mGycm TECHNIQUE: No contrast was administered. Low dose technique was utilized (average mAS-38 and kVp 120). 1.25 mm axial source images with a slice interval of 1.25-mm were reconstructed in lung windows. 2.5 mm axial source images with a slice interval of 2.5-mm were reconstructed in lung windows. 5.0 mm axial source images with a slice interval of 5.0-mm were reconstructed in soft tissue windows. COMPARISON: None. NODULES: There is a 1.4 cm x 1.1 cm noncalcified nodule in the peripheral lateral aspect of the left lower lobe as seen on axial image #165 and coronal image #158. A neoplastic process should be ruled out. There is also evidence of a 1.4 cm x 0.9 cm noncalcified nodule in the posterior-lateral aspect of the right lower lobe as seen on axial image #175 and coronal image #172. There is also evidence of a heterogeneous spiculated nodule in the anterior aspect of the left lower lobe measuring 1.3 cm x 1 cm as seen on axial image #182. 2 mm noncalcified nodule in the peripheral lateral aspect of the right upper lobe as seen on axial image #73 and coronal image #107. Emphysema: Hyperinflation. Diffuse emphysematous changes with bullous formation worse in the upper lobes. Findings suggestive of a scarring in both lung apices with areas of bronchiectasis. Endobronchial lesion: None Aorta: Atherosclerotic plaque formation of the aortic arch. CORONARY ARTERIES: Coronary artery calcification is seen. Heart: Unremarkable. Pulmonary artery: Unremarkable Mediastinal nodes: Slightly enlarged mediastinal lymph nodes. Other chest and abdominal findings: CT/Low Dose CT Lung Screening IMPRESSION: Lung-RADS category 4B - Chest CT with or without contrast, PET/CT and/or tissue sampling can be obtained depending on the probability of malignancy and comorbidities. IMPORTANT NOTES FOR USE: ACR Lung-RADS Version 1.1 Assessment Categories Release Date: 2018 Category: Coded 0-4 bases on nodule(s) with highest degree of suspicion. Negative screen is defined as categories 1 and 2; a positive screen is defined as categories 3 and 4. Category 3 and 4A nodules that are unchanged on interval CT should be coded as category 2, and individuals returned to screening in 12 months. Category 4X: Category 3 or 4 nodules with additional imaging findings that increase the suspicion of lung cancer, such as spiculation, GGN that doubles in size in 1 year, enlarged lymph notes, etc. Category Modifiers: S (significant finding unrelated to lung cancer) Electronically Signed: Micheal Leon MD at 14:29 EDT ,
== END | disposition home or self-care (01) ==
LOC: OPBI 12:45
PROVIDERS: PCP Family Medicine; Referring Provider Internal Medicine Hematology & Oncology; Visit Provider Internal Medicine Hematology & Oncology
DX: Z12.31 Encounter for screening mammogram for malignant neoplasm of breast (principal); Z12.2 Encounter for screening for malignant neoplasm of respiratory organs; Z87.891 Personal history of nicotine dependence
CPT/HCPCS: 71271; 77063; 77067

== ENCOUNTER → 2022-08-15 | Outpatient (CLI) | payer MEDICARE, OTHER, SELFPAY ==
[2022-08-15 11:19] VITALS: BP 154/88; PULSE 67; TEMP 36.2; O2SAT 99
[2022-08-15] MEDS: 0.9% NaCl IVPB Med Flush (250 mL) 20 ML IV (11:40)
== END | disposition home or self-care (01) ==
LOC: MEDOUTP 11:02
PROVIDERS: PCP Family Medicine; Referring Provider Internal Medicine Rheumatology; Visit Provider Internal Medicine Rheumatology
DX: M06.9 Rheumatoid arthritis, unspecified (principal)
CPT/HCPCS: 96365; J7050; A4216; J0129

== ENCOUNTER → 2022-09-02 | Outpatient (CLI) | payer MEDICARE, OTHER, SELFPAY ==
--- NOTE | 2022-09-02 14:32 | BD_ITS ---
STUDY: DUAL ENERGY X-RAY ABSORPTIOMETRY / DXA REASON FOR EXAM: Female, 72 years old. M85.89 TECHNIQUE: Bone Mineral Density (BMD) measurements of lumbar spine and bilateral hips were obtained. COMPARISON: None. FINDINGS: Lumbar Spine (L1-L4): g/cm2 (0.748) / T-score (-2.5) / Z-score (-0.3) Findings are suggestive of osteoporosis with a high fracture risk. Left Femur Total: g/cm2 (0.535) / T-score (-3.3) / Z-score (-1.7) Left Femoral Neck: g/cm2 (0.441) / T-score (-3.7) / Z-score (-1.7) Right Femur Total: g/cm2 (0.613) / T-score (-2.7) / Z-score (-1.1) Right Femoral Neck: g/cm2 (0.5-6) / T-score (-2.9) / Z-score (-1.0) BD/Dexa Bone Density Study IMPRESSION: The patient is considered osteoporotic as outlined below according to World Bill Organization (WHO) criteria with a moderate fracture risk. Reference Information: The T-score is the number of standard deviations above or below the standard which is normal for young adults at their peak bone mineral density. The World Health Organization (WHO) interprets the T-scores as follows: Above -1 Normal bone density Between -1 and -2.5 Osteopenia Equal to / or below -2.5 Osteoporosis As a practical clinical guideline, osteopenia may be graded as follows: Mild -1 through -1.5 Moderate -1.6 through -2.0 Severe -2.1 through -2.4 The Z-score is the number of standard deviations above or below age-matched controls. A Z-score of less than -1.5 would be considered abnormal. References: 1. NIH Osteoporosis and Related Bone Diseases www osteo.org 2. International Society for Clinical Densitometry www iscd.org 3. National Osteoporosis Foundation www nof.org Electronically Signed: Michael Leon MD at 15:40 EST ,
== END | disposition home or self-care (01) ==
LOC: OPBD 14:27
PROVIDERS: PCP Family Medicine
DX: M85.89 Other specified disorders of bone density and structure, multiple sites (principal)
CPT/HCPCS: 77080

== ENCOUNTER → 2022-09-12 | Outpatient (CLI) | payer MEDICARE, OTHER, SELFPAY ==
[2022-09-12 13:07] VITALS: BP 166/89; PULSE 72; O2SAT 100
[2022-09-12] MEDS: 0.9% NaCl IVPB Med Flush (250 mL) 15 ML IV (13:27)
[2022-09-12] MEDS: 0.9% NaCl Peripheral Flush Adult/Peds IV (13:27)
== END | disposition home or self-care (01) ==
LOC: MEDOUTP 12:54
PROVIDERS: PCP Family Medicine; Referring Provider Internal Medicine Rheumatology; Visit Provider Internal Medicine Rheumatology
DX: M06.9 Rheumatoid arthritis, unspecified (principal)
CPT/HCPCS: 96365; J7050; A4216; J0129

== ENCOUNTER → 2022-10-10 | Outpatient (CLI) | payer MEDICARE, OTHER, SELFPAY ==
[2022-10-10 13:05] VITALS: BP 167/93; PULSE 64; RESP 16; TEMP 36.8; O2SAT 96; BMI 16.9
[2022-10-10] MEDS: 0.9% NaCl Peripheral Flush Adult/Peds IV (13:17)
[2022-10-10] MEDS: 0.9% NaCl IVPB Med Flush (250 mL) 15 ML IV (13:17)
[2022-10-10 14:09] VITALS: BP 172/98; PULSE 62; RESP 16; O2SAT 98
== END | disposition home or self-care (01) ==
PROVIDERS: PCP Family Medicine; Referring Provider Internal Medicine Rheumatology; Visit Provider Internal Medicine Rheumatology
DX: M06.9 Rheumatoid arthritis, unspecified (principal)
CPT/HCPCS: 96372; J7050; A4216; J0129

== ENCOUNTER → 2022-11-14 | Outpatient (CLI) | payer MEDICARE, OTHER, SELFPAY ==
[2022-11-14 13:16] VITALS: BP 151/80; PULSE 61; RESP 16; TEMP 36.4; O2SAT 99; BMI 17.7
[2022-11-14] MEDS: 0.9% NaCl IVPB Med Flush (250 mL) 15 ML IV (13:26)
[2022-11-14] MEDS: 0.9% NaCl Peripheral Flush Adult/Peds IV (13:26)
[2022-11-14 14:20] VITALS: BP 155/64; PULSE 76
== END | disposition home or self-care (01) ==
LOC: MEDOUTP 12:53
PROVIDERS: PCP Family Medicine; Referring Provider Internal Medicine Rheumatology; Visit Provider Internal Medicine Rheumatology
DX: M06.9 Rheumatoid arthritis, unspecified (principal)
CPT/HCPCS: 96365; 96361; J7050; A4216; J0129

== ENCOUNTER → 2022-11-25 | Outpatient (CLI) | payer MEDICARE, SELFPAY ==
[2022-11-25 17:58] LABS: Erythrocyte Sedimentation Rate 32 mm/hr (0-30)
[2022-11-25 18:12] LABS: CRP 6.69 mg/L (0.0-3.0)
== END | disposition home or self-care (01) ==
LOC: MTLAB 15:41
PROVIDERS: PCP Family Medicine; Referring Provider Registered Nurse; Visit Provider Registered Nurse
DX: M06.9 Rheumatoid arthritis, unspecified (principal)
CPT/HCPCS: 36415; 85652; 86140

== ENCOUNTER → 2022-12-12 | Outpatient (CLI) | payer MEDICARE, OTHER, SELFPAY ==
[2022-12-12 13:17] VITALS: BP 161/90; PULSE 68; RESP 16; TEMP 36.1; O2SAT 99; BMI 16.9
[2022-12-12] MEDS: 0.9% NaCl IVPB Med Flush (250 mL) 15 ML IV (13:32)
[2022-12-12] MEDS: 0.9% NaCl Peripheral Flush Adult/Peds IV (13:32)
[2022-12-12 14:25] VITALS: BP 137/76; PULSE 62; RESP 16; TEMP 36.2; O2SAT 98
== END | disposition home or self-care (01) ==
LOC: MEDOUTP 12:57
PROVIDERS: PCP Family Medicine; Referring Provider Internal Medicine Rheumatology; Visit Provider Internal Medicine Rheumatology
DX: M06.9 Rheumatoid arthritis, unspecified (principal)
CPT/HCPCS: 96365; J7050; A4216; J0129

== ENCOUNTER → 2023-01-09 | Outpatient (CLI) | payer MEDICARE, OTHER, SELFPAY ==
[2023-01-09 13:06] VITALS: BP 142/91; PULSE 66; RESP 16; TEMP 35.7; O2SAT 99; BMI 16.9
[2023-01-09] MEDS: 0.9% NaCl IVPB Med Flush (250 mL) 15 ML IV (13:25)
[2023-01-09] MEDS: 0.9% NaCl Peripheral Flush Adult/Peds IV (13:25)
[2023-01-09 14:13] VITALS: BP 141/81; PULSE 57; RESP 16; TEMP 36.4; O2SAT 97
== END | disposition home or self-care (01) ==
LOC: MEDOUTP 12:59
PROVIDERS: PCP Family Medicine; Referring Provider Internal Medicine Rheumatology; Visit Provider Internal Medicine Rheumatology
DX: M06.9 Rheumatoid arthritis, unspecified (principal)
CPT/HCPCS: 96365; J7050; A4216; J0129

== ENCOUNTER 2023-02-06 12:55 | Outpatient (CLI) | payer MEDICARE, OTHER, SELFPAY ==
[2023-02-06] MEDS: 0.9% NaCl Peripheral Flush Adult/Peds IV (13:08)
[2023-02-06 13:12] VITALS: BP 137/67; PULSE 70; RESP 16; TEMP 35.9; O2SAT 97; BMI 18.5
[2023-02-06] MEDS: 0.9% NaCl IVPB Med Flush (250 mL) 15 ML IV (13:44)
[2023-02-06 14:40] VITALS: BP 134/71; PULSE 63; RESP 16; O2SAT 98
== END 2023-02-06 12:56 | disposition home or self-care (01) ==
LOC: MEDOUTP 12:55
PROVIDERS: PCP Family Medicine; Referring Provider Internal Medicine Rheumatology; Visit Provider Internal Medicine Rheumatology
DX: M06.9 Rheumatoid arthritis, unspecified (principal)
CPT/HCPCS: 96365; J7050; A4216; J0129

== ENCOUNTER 2023-03-06 12:52 | Outpatient (CLI) | payer MEDICARE, OTHER, SELFPAY ==
[2023-03-06 13:10] VITALS: BP 156/88; PULSE 65; RESP 16; TEMP 36.3; O2SAT 97; BMI 16.9
[2023-03-06] MEDS: 0.9% NaCl IVPB Med Flush (250 mL) 15 ML IV (13:23)
[2023-03-06] MEDS: 0.9% NaCl Peripheral Flush Adult/Peds IV (13:23)
[2023-03-06 13:58] VITALS: BP 147/82; PULSE 58; RESP 16; TEMP 35.8; O2SAT 98
[2023-03-06 14:15] VITALS: BP 147/82; PULSE 58; RESP 16; TEMP 35.8; O2SAT 98
== END 2023-03-06 12:53 | disposition home or self-care (01) ==
PROVIDERS: PCP Family Medicine; Referring Provider Internal Medicine Rheumatology; Visit Provider Internal Medicine Rheumatology
DX: M06.9 Rheumatoid arthritis, unspecified (principal)
CPT/HCPCS: 96365; J7050; A4216; J0129

== ENCOUNTER 2023-04-06 14:28 | Outpatient (CLI) | payer MEDICARE, OTHER, SELFPAY ==
[2023-04-06] MEDS: 0.9% NaCl Peripheral Flush Adult/Peds IV (14:39)
[2023-04-06 14:44] VITALS: BP 130/70; PULSE 97; RESP 16; TEMP 35.8; O2SAT 96; BMI 17.5
[2023-04-06] MEDS: 0.9% NaCl IVPB Med Flush (250 mL) 15 ML IV (15:04)
[2023-04-06 15:52] VITALS: BP 159/78; PULSE 54; RESP 16; TEMP 36
== END 2023-04-06 14:29 | disposition home or self-care (01) ==
LOC: MEDOUTP 14:28
PROVIDERS: PCP Family Medicine; Referring Provider Internal Medicine Rheumatology; Visit Provider Internal Medicine Rheumatology
DX: M06.9 Rheumatoid arthritis, unspecified (principal)
CPT/HCPCS: 96365; J7050; A4216; J0129

== ENCOUNTER 2023-04-15 12:54 | Emergency (ER) | payer MEDICARE, OTHER, SELFPAY ==
[2023-04-15 12:56] VITALS: BP 138/79; PULSE 74; RESP 18; TEMP 36.6; O2SAT 98
--- NOTE | 2023-04-15 13:45 | RAD_ITS ---
STUDY: X-RAY - PELVIS AND LEFT HIP REASON FOR EXAM: Female, 73 years old. Left hip pain following injury. TECHNIQUE: 3 views of the pelvis and hip. COMPARISON: None. FINDINGS: There is a non-specific bowel gas pattern. Normal visualized soft tissue structures. Normal bilateral iliac wings, sacroiliac joints and visualized sacrum. Normal bilateral superior and inferior pubic rami. Normal pubic symphysis. Normal bilateral ischial tuberosities. Normal visualized femoral head. There is osteoarthritic spur formation of the acetabular rim. There is mild articular joint space narrowing of the hip. RAD/HIP, UNI W/ Pelvis 2-3 Views IMPRESSION: Degenerative changes about both hip joints. No evidence of fracture or dislocation. Electronically Signed: Michael Leon MD at 14:17 EDT ,
--- NOTE | 2023-04-15 15:09 | ED.VIS.FALL ---
HPI HPI - Fall History of Present Illness Chief Complaint: Lower Extremity Injury PFSH PFSH Medical History After-cataract of both eyes Arthritis Dysplasia of cervix Encounter for screening for malignant neoplasm of lung in current smoker with 30 pack year history or greater Erythrocytosis High blood pressure Leukocytosis Migraine headache Multiple lung nodules Other nonspecific abnormal finding of lung field Thrombocytosis Tobacco use disorder, continuous Home Medications prednisone 10 mg tablet 10 mg PO DAILY PRN ra flare 04/22/19 [History Last Taken Unknown] abatacept 50 mg/0.4 mL subcutaneous syringe (Orencia) 500 mg QMONTH 07/14/22 [History Last Taken Unknown] brimonidine 0.2 %-timolol 0.5 % eye drops 1 drp ophthalmic (eye) BID 07/14/22 [History Last Taken Unknown] cholecalciferol (vitamin D3) 125 mcg (5,000 unit) capsule 125 mcg PO DAILY 07/14/22 [History Last Taken Unknown] mecobalamin (vitamin B12) 5,000 mcg chewable tablet 2,500 mcg PO DAILY 07/14/22 [History Last Taken Unknown] latanoprostene bunod 0.024 % eye drops (Vyzulta) 1 drp ophthalmic (eye) DAILY 10/30/22 [History Last Taken Unknown] propranolol 10 mg tablet 10 mg PO DAILY High Bp/Anxiety 03/06/23 [History Last Taken Unknown] bupropion HCl 150 mg 24 hr tablet, extended release 150 mg PO DAILY 04/06/23 [History Last Taken Unknown] prednisone 2.5 mg tablet mg PO DAILY 04/06/23 [History Last Taken Unknown] amoxicillin 875 mg-potassium clavulanate 125 mg tablet 1 tab PO BID #14 tabs 04/15/23 [Rx Last Taken Unknown] Allergy/AdvReac Type Severity Reaction Status Date / Time azithromycin Allergy Rash Verified 04/15/23 12:58 [From Zithromax Z-Dakotah] ibuprofen AdvReac Mild Upset Verified 04/15/23 12:58 Stomach Family History Mother Heart disease quad bypass Unknown [place]'s disease paternal side family members Surgical History Hx of cataract extraction Hx of foot surgery Hx of tooth extraction Social History history of recent travel: No Smoking Status: Current every day smoker tobacco type: cigarettes Tobacco: How many years used: 50 Electronic Cigarette Use: not used quit status: has quit before alcohol intake: never substance use type: marijuana caffeine: Yes Type: tea Number of servings: 5 what type of physical activity do you participate in: none EXAM Physical Exam Const Vital Signs: 04/15/23 12:56 Temperature 97.8 F Temperature Source Temporal Pulse Rate 74 Respiratory Rate 18 Blood Pressure 138/79 H Blood Pressure Mean 98 Pulse Ox 98 Oxygen Delivery Method Room Air MDM MDM MDM Narrative Medical decision making narrative: HISTORY OF PRESENT ILLNESS: 73-year-old female here with fall and left hip pain. She states she was walking her dog. The dog nipped at her right foot causing her to fall on her left hip. Denies any head trauma or loss of consciousness. She states there is some mild redness over the dorsal surface of her right foot secondary to dog bite. Denies any numbness tingling or loss of sensation involved extremity. Denies any history of surgery to the left hip. REVIEW OF SYSTEMS: Pertinent positives: Left hip pain Pertinent negatives: Head trauma, loss of consciousness PHYSICAL EXAM: Nursing triage notes reviewed, Vital signs reviewed Constitutional: please see mdm Lungs: Clear to auscultation, No wheezing or rales. No increased work of breathing, no conversational dyspnea, no accessory muscle use, no nasal flaring. No respiratory distress noted Heart: Regular rate and rhythm, No murmurs, No rubs and No gallops, 2+ distal pulses (radial, femoral, posterior tibial) in all extremities Back: No midline TTP to the lumbar spine no step-offs deformities Extremities: No edema, TTP over left greater trochanter, increasing pain with flexion extension internal/external rotation of left hip. No leg length discrepancy. Intact quadriceps tendon complex. Neuro: Intact sensation L1-S1 dermatomal distributions. Intact 5/5 strength in hip flexion (T12-L3). Knee extension (L2-L4). Ankle dorsiflexion (L4-L5). Ankle plantar flexion (S1). Great toe extension (L5). 2+ patellar and Achilles DTRs. Skin: Mild erythema noted to the dorsal surface of the right foot just proximal to the first MTP joint MEDICAL DECISION MAKING: Chief Complaint: Left hip pain External records reviewed: No recent advanced imaging of the involved extremity Factors affecting care: Rheumatoid arthritis ALL IMAGES (IF OBTAINED) HAVE BEEN PERSONALLY REVIEWED AND INTERPRETED BY MYSELF. [facility] Narrative: Patient was hemodynamically stable, afebrile, nontoxic-appearing. Neurovascular intact left lower extremity. No signs of quadricep tendon disruption. Good pulses warm and well-perfused left lower extremity. I considered the following differential diagnosis: Hip fracture, hip dislocation, hip contusion I considered septic arthritis however patient had a traumatic injury. No fever. Pain was out of proportion to exam. Low suspicion for septic arthritis at this time. Patient had a neurovascular tact left lower extremity. Intact quadriceps tendon complex. I obtained an x-ray to rule out fracture dislocation. I personally reviewed the patient's x-ray. X-ray showed no evidence of acute fracture dislocation. The patient is likely some from a left hip contusion. Patient does have evidence of a dog bite to the right first metatarsal. Will give prophylactic antibiotics. Give the patient oral Percocet here and instructed to take Tylenol ibuprofen as an outpatient for further pain control anti-inflammatory effect. The patient and/or family, caregivers express understanding. The patient and/or family, caregivers agrees with the plan. Total critical care time today provided was at least 0 minutes. This excludes separately billable procedures. Critical care time (if documented) is secondary to the patient having high probability of clinically significant/life threatening deterioration in the patient's condition which required my urgent intervention. Shared decision making: I will have a discussion with the patient and or visitors regarding risk/benefits of further testing or admission. They will be made aware of of the risk/benefits inherent in this decision they will be given the opportunity to voice understanding. Radiography Diagnostic Testing: Clinical Impression(s) from Imaging Studies Hip/Pelvis X-Ray 04/15/23 13:45 IMPRESSION: Degenerative changes about both hip joints. No evidence of fracture or dislocation. Electronically Signed: Michael Leon MD at 14:17 EDT , Discharge Plan Triage Chief Complaint: Lower Extremity Injury Other Complaint: Fall ED Provider: Shiv Walsh Dx/Rx/DC Orders Clinical Impression: Quadriceps muscle strain, Contusion of hip Instructions: Bone Contusion Prescriptions: New amoxicillin-pot clavulanate 875-125 mg tablet 1 tab PO BID Qty: 14 0RF No Action Vyzulta 0.024 % drops 1 drp ophthalmic (eye) DAILY brimonidine-timolol 0.2-0.5 % drops 1 drp ophthalmic (eye) BID cholecalciferol (vitamin D3) 125 mcg (5,000 unit) capsule 125 mcg PO DAILY mecobalamin (vitamin B12) 5,000 mcg tablet,chewable 2,500 mcg PO DAILY Orencia 50 mg/0.4 mL syringe 500 mg QMONTH prednisone 10 MG tablet 10 mg PO DAILY PRN (Reason: ra flare) propranolol 10 mg Tablet 10 mg PO DAILY prednisone 2.5 mg tablet PO DAILY Patient Comments: TAKE 1 TABLET BY MOUTH DAILY FOR 90 DAYS bupropion HCl 150 mg tablet extended release 24 hr 150 mg PO DAILY Primary Care Provider: Demetra Allred Referrals: Demetra Allred, DO [Primary Care Provider] - Activity Restrictions/Additional Instructions: Thank you for trusting us with your care today! Please take Tylenol (2 pills, 650 mg), ibuprofen (2 pills, 400 mg) every 6 hours as needed for pain and fever control. Please return to the emergency department if your symptoms change or worsen. Specifically if develop decreased range of motion in your left hip, discoloration of the involved extremity, coolness to touch your involved extremity, inability to ambulate Please follow with your primary care physician for further outpatient evaluation and management. Disposition Disposition: Home, Self Care Discharge Date/Time: 04/15/23 15:52
[2023-04-15 15:37] VITALS: BMI 18.2
[2023-04-15] MEDS: Amox/Clavulanate 875 MG Tablet PO (15:42)
[2023-04-15] MEDS: Oxycodone/Apap 5/325 Tablet PO (15:42)
== END 2023-04-15 15:52 | disposition home or self-care (01) ==
LOC: ED 15:41
PROVIDERS: Emergency Provider Emergency Medicine; PCP Family Medicine; Visit Provider Emergency Medicine
DX: S76.119A Strain of unspecified quadriceps muscle, fascia and tendon, initial encounter (principal); S70.00XA Contusion of unspecified hip, initial encounter; W54.0XXA Bitten by dog, initial encounter; F17.210 Nicotine dependence, cigarettes, uncomplicated; S91.351A Open bite, right foot, initial encounter; I10 Essential (primary) hypertension; Z79.899 Other long term (current) drug therapy; W18.39XA Other fall on same level, initial encounter; Y93.K1 Activity, walking an animal
CPT/HCPCS: 73502; 99283

== ENCOUNTER 2023-05-04 14:26 | Outpatient (CLI) | payer MEDICARE, OTHER, SELFPAY ==
[2023-05-04 14:40] VITALS: BP 146/93; PULSE 68; RESP 16; TEMP 35.9; O2SAT 99; BMI 16.9
[2023-05-04] MEDS: 0.9% NaCl Peripheral Flush Adult/Peds IV (14:47)
[2023-05-04] MEDS: 0.9% NaCl IVPB Med Flush (250 mL) 15 ML IV (14:52)
[2023-05-04 16:18] VITALS: BP 141/80; PULSE 64; RESP 16
== END 2023-05-04 14:27 | disposition home or self-care (01) ==
LOC: MEDOUTP 14:26
PROVIDERS: PCP Family Medicine; Referring Provider Internal Medicine Rheumatology; Visit Provider Internal Medicine Rheumatology
DX: M06.9 Rheumatoid arthritis, unspecified (principal)
CPT/HCPCS: 96365; J7050; A4216; J0129

== ENCOUNTER 2023-05-12 10:31 | Inpatient (IN) | payer MEDICARE, SELFPAY ==
[2023-05-12] VITALS (11 sets, daily range): BP systolic 108–148; BP diastolic 56–94; PULSE 56–68; RESP 14–18; TEMP 36.3–36.8; O2SAT 92–100; BMI 17.3
[2023-05-12] MEDS: Lactated Ringers 1,000 ML 15 ML IV ×2 (10:45→13:09)
--- NOTE | 2023-05-12 11:21 | HP.PCM_ITS ---
History and Physical Date of Admission: 05/12/23 [facility] [address] [place] [address] OFFICE VISIT Date of Service: 05/08/23 MR#: [id number] Acct: [id number] Name: BHUPENDRA MANRIQUEZ Rep #: [id number] : 1950 Provider: Dr. Sergio Lara DO Age/Sex: 73/F Location: [facility] [place] Status: Signed Intake Vital Signs 04/15/2312:56 05/04/2314:40 05/08/2309:57 Height 5 ft 1 in 5 ft 1 in 5 ft Weight: 90 lb BMI 17.6 Intake Visit Reasons: LEFT HIP Chief Complaint: left hip pain Is patient in pain?: Yes (left hip) Pain scale (1-10): 4 Allergies azithromycin [From Zithromax Z-Dakotah] Allergy (Verified 05/08/23 09:59) Rashibuprofen Adverse Reaction (Mild, Verified 05/08/23 09:59) Upset Stomach Medications prednisone 10 mg tablet 10 mg PO DAILY PRN ra flare 04/22/19 [History Confirmed 05/04/23] abatacept 50 mg/0.4 mL subcutaneous syringe (Orencia) 500 mg subcut QMONTH 07/14/22 [History Confirmed 05/04/23] brimonidine 0.2 %-timolol 0.5 % eye drops 1 drp ophthalmic (eye) BID 07/14/22 [History Confirmed 05/04/23] cholecalciferol (vitamin D3) 125 mcg (5,000 unit) capsule 125 mcg PO DAILY 07/14/22 [History Confirmed 05/04/23] mecobalamin (vitamin B12) 5,000 mcg chewable tablet 2,500 mcg PO DAILY 07/14/22 [History Confirmed 05/04/23] latanoprostene bunod 0.024 % eye drops (Vyzulta) 1 drp ophthalmic (eye) DAILY 10/30/22 [History Confirmed 05/04/23] bupropion HCl 150 mg 24 hr tablet, extended release 150 mg PO DAILY 04/06/23 [History Confirmed 05/04/23] prednisone 2.5 mg tablet 2.5 mg PO DAILY 04/06/23 [History Confirmed 05/04/23] tramadol 50 mg tablet 50 mg PO Q8H PRN pain #20 tabs 05/08/23 [Rx Confirmed 05/08/23] PFSH Medical History After-cataract of both eyes Arthritis Dysplasia of cervix Encounter for screening for malignant neoplasm of lung in current smoker with 30 pack year history or greater Erythrocytosis High blood pressure Leukocytosis Migraine headache Multiple lung nodules Other nonspecific abnormal finding of lung field Thrombocytosis Tobacco use disorder, continuous Surgical History Hx of cataract extraction Hx of foot surgery Hx of tooth extraction Family History Mother Heart disease quad bypassUnknown [place]'s disease paternal side family members Social History history of recent travel: No Smoking Status: Current every day smoker tobacco type: cigarettes Tobacco: How many years used: 50 Electronic Cigarette Use: not used quit status: has quit before alcohol intake: never substance use type: marijuana caffeine: Yes Type: tea Number of servings: 5 what type of physical activity do you participate in: none HPI LEFT HIP Chief Complaint: left hip pain Details: Parts of this documentation were recorded by a scribe, this documentation accurately reflects the service provided and the decisions made by me, Dr. Sergio Lara, DO 05/08/23 0801. BHUPENDRA MANRIQUEZ is a 73 year old F here today for left hip pain. She advises she fell on her left hip 04-14-23 after her dog bit her foot and this caused her to loose her balance and fall. She was seen in [facility] ED on 04-15-23 where Xrays were done of her left hip which were negative for fracture and told her she has a left hip contusion. She states she is still experiencing pain but it has improved. She describes it as a sharp pain in her left groin and left low back and glute. She states her pain increases with steps, and as she bends to sit. She states that the pain initially was a 9/10 but now the pain is 4-5/10. The pain has improved and is mosly located in her groin. Ortho Exam General General: Yes no acute distress Neurologic: Yes alert and Yes oriented x3 Psychologic: Yes reasonable and appropriate Left Hip Skin/Wound: Yes CDI, No Ecchymosis, No soft tissue swelling and No Erythema Hip: Absent eccymosis, soft tissue swelling, erythema or tender to palpate - Homans Sign: No HIP: 5 internal with groin pain 40 external with groin pain She has no swelling in her lower extremity there is no redness there is no ecchymosis there is no mass around the hip there is no swelling around the hip Head: Normocephalic Atraumatic Chest: symmetrical rise, non-labored breathing, no audible wheeze Abdomen: no guarding, non-rigid Supplemental Info 04/15/2023 x-ray left hip: Mild degenerative spurring of acetabulum however preserved joint space Coding Level of Care Code Off vis,new,level 3 Diagnoses Closed fracture of neck of left femur, initial encounter S72.002A Encounter type: initial encounter Fracture type: closed Laterality: left Assessment and Plan Assessment and Plan (1) Femoral neck fracture: Status: Acute Qualifiers: Encounter type: initial encounter Fracture type: closed Laterality: left Qualified Code(s): S72.002A - Fracture of unspecified part of neck of left femur, initial encounter for closed fracture Orders: Orders HIP, UNI W/ Pelvis 2-3 Views Today R10.32 - Left lower quadrant pain Medications: New tramadol Narcotic pain medication can be addictive only take as needed 50 mg PO Q8H PRN 20 tabs 0RF pain S72.009A - Fracture of unspecified part of neck of unspecified femur, initial encounter for closed fracture Plan The xrays of the left hip from 04/15/23 do not demonstrate a fracture but repeat xrays were taken today which show a non displaced femoral neck fracture. Considering she is 3-1/2 weeks from her injury and she has been ambulating full weightbearing in the fracture has not collapsed or displaced she does have options ,patient educated that the fx site can continue to heal on its own but the fx site could become displaced requiring hemiarthroplasty. The recommendation is to have surgery and has screws placed which is called percutaneous screw fixation to guide the fracture collapse. She wishes to think about her options therefore in the meantime would recommend to keep as much weight off the left hip as possible. She does smoke about 1.5 packs a day since she was 11yo. Encouraged smoking cessation to aid in the healing of the fx site. Will prescribe the patient tramadol for the pain. She was a given a walker in the office today. She should make a decision by Thursday. Being a smoker and her rheumatoid medications do put her at increased risk for infection. Follow up with decision or sooner if pain, swelling, numbness or associated symptoms, or concerns develop. All questions answered. Patient in agreement of plan. 05/08/23 1053 <Electronically signed by Sergio Lara DO> Date Sergio Lara DO Cosigner Signature: Date (if applicable) CC: ~ I have examined the patient and the H&P has been reviewed. There are no clinical changes since date of exam.
[2023-05-12 11:25] LABS: Hematocrit 50.6 % (37-47); Hemoglobin 16.3 g/dL (12.0-15.0); Mean Corp Hgb Conc 32.2 g/dL (32-36); Mean Corpuscular Hgb 28.6 pg (27.0-32.0); Mean Corpuscular Volume 88.8 fL (81-99); Mean Platelet Vol. 8.5 fl (6.2-12.0); Platelet Count 405 K/mm3 (150-450); RBC Distribution Width SD 45.3 fl (35.1-43.9); White Blood Count 15.1 K/mm3 (4.4-11.0)
[2023-05-12] MEDS: Cefazolin 2 GM in 0.9% Normal Saline 100 ML IV (11:27)
[2023-05-12 11:38] LABS: Anion Gap 6 (5-15); BUN 9 mg/dL (7-18); Calcium,Total 9.2 mg/dL (8.5-10.1); Chloride 106 mmol/L (98-107); EST Glomerular Filtration Rate 65 mL/min (>60); Est Glom Filt Rate - Afr Amer 79 mL/min (>60); Estimated Creatinine Clearance 35.42 ml/min; Glucose 109 mg/dL (74-106); Potassium 4.4 mmol/L (3.5-5.1); Sodium Level 137 mmol/L (136-145)
[2023-05-12] MEDS: Lidocaine 1% /Epi 1:100 (20ml) 20 ML Vial (12:12)
--- NOTE | 2023-05-12 12:27 | OP.PCM_ITS ---
Operative Report Date of Procedure: 05/12/23 Preoperative diagnosis: Left hip subcapital femoral neck fracture [valgus impacted nondisplaced] Postoperative diagnosis: Same Procedure: Percutaneous screw fixation of left hip Anesthesia: General EBL: [10] Complications: None Implant :Synthes 7.3mm cannulated hip screws x3 Condition: Stable to PACU Indication for procedure: 73-year-old female patient who had a ground-level fall 04/14/2023 patient did proceed to the emergency room department where x-rays were taken and did not demonstrate an obvious fracture she was discharged home and was weightbearing as tolerated her pain did improve but did not go away therefore she came to my office for this left groin pain and x-ray was taken in my office which demonstrated there was indeed a fracture of the femoral neck subcapital area it was nondisplaced . we did discuss cannulated screw fixation of the left hip for the intention of guiding fracture collapse and to prevent significant displacement which may necessitate hemiarthroplasty. Risk benefits and alternatives were reviewed including risk of bleeding infection nerve, kalyani ry, bone, tissue damage, blood clot need for further surgery and continued pain, AVN. Procedure: Patient was met in the preoperative holding area once again the operative extremity was identified by both patient and physician was marked. Patient was met by anesthesia and brought back to the operating room on a wheeled cart and transfered the operating table in supine position anesthesia was started. Patient was then positioned on fracture table all bony prominences were well-padded. Fluoroscopy unit was brought in to ensure adequate AP and lateral projections could be achieved. Patient was then prepped and draped in usual sterile fashion a timeout was called to the proper patient procedure and extremity are being contemplated. Fluoroscopy was once again brought in and with a metallic instrument the starting point was marked on the AP and lateral projections on the skin then made a stab incision through the skin and the pin was inserted to the appropriate starting point was advanced into the femoral head this was checked in both AP and lateral projections for position. We then used the parallel drill guide to place anterior and posterior screws superior to the initial screw creating an inverted triangle pattern. these were checked in both AP and lateral projections and measured self-tapping screws were then placed over the pins. Final AP and lateral projections were saved to the PACS system. Screw heads were checked to make sure there is no iliotibial band entrapment the wound was thoroughly irrigated subcutaneous tissue was closed with 0 Vicryl 2-0 Vicryl followed by tuyet in the skin standard dressing applied. All counts were correct patient was transferred to the PACU in stable condition.
[2023-05-12] MEDS: Cefazolin 1 GM/50 ML BAG IV ×2 (13:12→21:04)
--- NOTE | 2023-05-12 14:00 | RAD_ITS ---
INDICATION: Intraoperative exam for hip pinning EXAMINATION/TECHNIQUE: X-RAY - XR Hip Unilateral with Pelvis when performed; 1 View COMPARISON: Prior exam of 05/08/2023. FINDINGS: 3 views of the left hip were obtained intraoperatively on a C-arm for left hip pinning. The examination was not performed for diagnostic purposes and is not diagnostic. The fluoroscopy time was 64.3 seconds. RAD/Hip 1 view with Pelvis IMPRESSION: Intraoperative exam as described above. Electronically Signed: Eleno Owens MD at 10:22 EDT ,
[2023-05-12] MEDS: oxyCODONE 5 MG Tablet PO (17:16)
[2023-05-12] MEDS: Calcium Carbonate 500 MG Tablet PO (17:18)
[2023-05-12] MEDS: Acetaminophen 500 MG Tablet 1000 MG PO (17:20)
[2023-05-12] MEDS: Ondansetron 4 MG/2 ML Vial IV (20:26)
[2023-05-12] MEDS: Lactated Ringers 1,000 ML 125 ML IV (20:28)
[2023-05-13 02:27] VITALS: BP 137/73; PULSE 65; RESP 16; TEMP 36.5; O2SAT 95
[2023-05-13] MEDS: Cefazolin 1 GM/50 ML BAG IV (04:38)
[2023-05-13] MEDS: Lactated Ringers 1,000 ML 125 ML IV (05:33)
[2023-05-13 05:43] VITALS: BP 129/77; PULSE 62; RESP 18; TEMP 36.6; O2SAT 92
--- NOTE | 2023-05-13 06:04 | NURSING ---
Nursing elevated pt's heels with a folded blanket while attempting to obtain heel protectors as ordered. Pt reports that she does not want to elevate her heels and refuses to do so.
[2023-05-13 06:12] LABS: Hematocrit 43.7 % (37-47); Hemoglobin 14.3 g/dL (12.0-15.0); Mean Corp Hgb Conc 32.7 g/dL (32-36); Mean Corpuscular Hgb 28.3 pg (27.0-32.0); Mean Corpuscular Volume 86.5 fL (81-99); Mean Platelet Vol. 8.6 fl (6.2-12.0); Platelet Count 395 K/mm3 (150-450); RBC Distribution Width CV 13.7 % (11.6-14.6); RBC Distribution Width SD 43.5 fl (35.1-43.9); Red Blood Count 5.05 M/mm3 (4.2-5.4); White Blood Count 17.3 K/mm3 (4.4-11.0)
[2023-05-13 07:05] LABS: Anion Gap 5 (5-15); BUN 7 mg/dL (7-18); BUN/Creat Ratio 9.3 RATIO (10-20); Calcium,Total 8.8 mg/dL (8.5-10.1); Chloride 102 mmol/L (98-107); Creatinine, Serum 0.75 mg/dL (0.55-1.02); EST Glomerular Filtration Rate 81 mL/min (>60); Est Glom Filt Rate - Afr Amer 97 mL/min (>60); Estimated Creatinine Clearance 31.88 ml/min; Glucose 115 mg/dL (74-106); Potassium 3.6 mmol/L (3.5-5.1); Sodium Level 137 mmol/L (136-145)
[2023-05-13 08:36] VITALS: BP 150/77; PULSE 69; RESP 20; TEMP 36.4; O2SAT 92
[2023-05-13] MEDS: Calcium Carbonate 500 MG Tablet PO (08:43)
[2023-05-13] MEDS: buPROPion (XL) 150 MG TABLET.XL PO (08:43)
[2023-05-13] MEDS: predniSONE 5 MG Tablet 2.5 MG PO (08:43)
[2023-05-13] MEDS: BRIMONIDINE 0.2% 5ML BOTTLE 1 DRP OPHTHALMIC (08:45)
[2023-05-13] MEDS: Cholecalciferol (Vit D3) 125 MCG CAPSULE (5,000 UNITS) PO (08:46)
[2023-05-13] MEDS: predniSONE 10 MG Tablet PO (08:46)
--- NOTE | 2023-05-13 09:15 | CASEMGMT ---
Discharge Planning SNF list created and sent to SW. Ragini Escobedo, Discharge Planning Asst.
--- NOTE | 2023-05-13 09:35 | CASEMGMT ---
Discharge Planning HH list created and sent to RN CM. Ragini Escobedo, Discharge Planning Asst.
[2023-05-13] MEDS: APIXABAN 2.5 MG TABLET (WCH) PO (10:57)
--- NOTE | 2023-05-13 12:42 | PCM.PN.ORT ---
Subjective Subjective Patient seen and examined doing well pain controlled became very nauseous with oxycodone. Denies any fevers chills nausea vomiting shortness of breath chest pain or dizziness she has ambulated well with physical therapy she has no concerns or complaints Objective Data Objective Data Vital Signs: Vital Signs Temp Pulse Resp BP Pulse Ox O2 Del Method O2 Flow Rate 97.6 F L 69 20 H 150/77 H 92 Room Air 6 05/13/23 08:36 05/13/23 08:36 05/13/23 08:36 05/13/23 08:36 05/13/23 08:36 05/13/23 08:36 05/12/23 12:33 Oxygen Flow Rate (L/min) 6 Oxygen Delivery Method Room Air Weight: 88 lb 13.541 oz Body Mass Index (BMI) 17.3 Intake & Output: Intake and Output for Last 24 Hours 05/11/23 05/12/23 05/13/23 23:59 23:59 23:59 Intake Total 2463.58 / 2463.58 1650 / 1650 Balance 2463.58 / 2463.58 1650 / 1650 Lab / Micro Data 05/13/23 05:35 05/13/23 05:35 Labs: Laboratory Results - last 24 hr 05/13/23 05:35: WBC 17.3 H, RBC 5.05, Hgb 14.3, Hct 43.7, MCV 86.5, MCH 28.3, MCHC 32.7, RDW Std Deviation 43.5, RDW Coeff of Yunior 13.7, Plt Count 395, MPV 8.6, Sodium 137, Potassium 3.6, Chloride 102, Carbon Dioxide 30.0, Anion Gap 5, BUN 7, Creatinine 0.75, Estim Creat Clear Calc 31.88, Est GFR (MDRD) Af Amer 97, Est GFR (MDRD) Non-Af 81, BUN/Creatinine Ratio 9.3 L, Glucose 115 H, Calcium 8.8 Radiography Diagnostic Testing: Radiology Impression Hip/Pelvis X-Ray 05/12/23 14:00 IMPRESSION: Intraoperative exam as described above. Electronically Signed: Eleno Owens MD at 10:22 EDT , Physical Exam Const alert, oriented x3 and no apparent distress Extremity Extremity Narrative: Left hip dressing clean dry intact compartments soft neurovascular intact left lower extremity Assessment & Plan Assessment/Plan (1) Femoral neck fracture: QUALIFIERS: Encounter type: initial encounter Fracture type: closed Laterality: left Qualified Code(s): S72.002A - Fracture of unspecified part of neck of left femur, initial encounter for closed fracture PLAN: Plan Postop day #1 left hip percutaneous screw fixation for subacute femoral neck fracture PT OT 50% weightbearing left lower extremity Eliquis 2.5 mg twice daily Will switch from oxycodone to [place] secondary to nausea DC home later today per patient request after second round physical therapy
--- NOTE | 2023-05-13 12:46 | DCINST_ITS ---
Discharge Instructions Diet Discharge Diet: No restrictions Activity Weight Bearing Status: Partial weight bearing (50% left lower ext) Dressing / Incision Call your doctor if you observe: Shortness of breath and Chest pain Additional Dressing/Incision Instructions:: Do not shower 72hrs post operatively. Begin daily showering warm water antibacterial soap postop day #3( 72hrs Post-operatively) and then daily. Leave the dressing on for 72 hours postoperatively then may remove prior to first shower and change dressing daily after this until no drainage for 2 consecutive days then may leave open to air. Wear compression stockings, may remove at night. Start physical therapy as directed in hospital. 50% weightbearing left lower extremity use walker during ambulation. follow prescriptions instructions do not take any other pain medication or differ dosing without consulting your physician. Do not take oral NSAIDs until blood thinner has been completed , then may begin the day after completion if needed . Call Dr. Lara's office with any concerns. Follow Up Care Please Follow Up With: Sergio Lara DO When: 2 weeks Test Results: Test results from this visit will be discussed in further detail at your follow- up appointment, if applicable. Discharge Plan Admission Admit Date/Time: 05/12/23 10:31 Primary Reason for Your Visit: Left femoral neck fracture Attending Provider: Sergio Lara Primary Care Provider: Demetra Allred Discharge Orders/Prescriptions Prescriptions: New Eliquis 2.5 mg tablet 2.5 mg PO BID Qty: 42 0RF hydrocodone-acetaminophen 5-325 mg tablet 1 - 2 tab PO Q4H PRN (Reason: pain) 5 Days Qty: 30 0RF Rx Instructions: Do not exceed 4000 mg of Tylenol per day. This medication contains 325mg of Tylenol per pill. Continued Vyzulta 0.024 % drops 1 drp ophthalmic (eye) DAILY brimonidine-timolol 0.2-0.5 % drops 1 drp ophthalmic (eye) BID cholecalciferol (vitamin D3) 125 mcg (5,000 unit) capsule 125 mcg PO DAILY mecobalamin (vitamin B12) 5,000 mcg tablet,chewable 5,000 mcg PO DAILY Orencia 50 mg/0.4 mL syringe 500 mg subcut QMONTH prednisone 10 MG tablet 10 mg PO DAILY prednisone 2.5 mg tablet 2.5 mg PO DAILY Patient Comments: TAKE 1 TABLET BY MOUTH DAILY FOR 90 DAYS bupropion HCl 150 mg tablet extended release 24 hr 150 mg PO DAILY Discontinued tramadol 50 mg tablet 50 mg PO Q8H PRN (Reason: pain) Qty: 20 0RF Rx Instructions: Narcotic pain medication can be addictive only take as needed Other Ambulatory Orders: 12 Lead EKG (Routine) Timeframe: [id number] Facility: [facility] - Location: Cardiovascular Services Ordered By: Dr. Farhan Joseph Referrals / Follow Up: Demetra Allred DO [Primary Care Provider] -
--- NOTE | 2023-05-13 13:33 | CASEMGMT ---
RN?CM?COMPUTER SCIENCE PROFESSOR?CM?to room to meet with patient for initial transition planning/care coordination?assessment.?RN?CM?introduced self and role at [facility].? Pt voices understanding and consents to?assessment?at this time.? Pt sitting up in chair in room in no distress at this time.? at bedside. Pt is A/O at this time and answers all questions appropriately.?? Care providers, pharmacy, and demographics verified/updated at this time. PCP: Dr Allred Specialists: Dr Lara--ortho, Dr Janell Parish (?sp) and NICOLE Mascorro- rheumatology @ [facility] in [place], Dr Henley-radiological health specialist @ [facility], Dr Espino-wire fence erector in [place] Preferred Pharmacy: [facility] Retail Insurance: [employer] [facility] Prescription Benefit:?Yes Living Will/HPOA:?Pt does not currently have LW/HCPOA and declines info at this time.? Pt made aware that she can contact as an out-pt and make appt in the future if she decides she would like to talk with someone about this or would like to utilize [facility] social work for advanced directive completion.? LNOK: Emmanuel. 2 dtrs: one lives about 5 miles away and the other lives in [place] Living Arrangements: Lives w/her in bi-level home w/2 steps to get to day room. Pt then has 6 steps to get to main level where the kitchen, bedroom, and bathroom are. Pt and state that for the past month pt has been mostly just staying on the main level and has rarely left the home d/t the 8 total steps there are to leave the home. They also confirm, that once pt gets up the the main level, that she can get in/out of the bathroom w/the walker she already has @ home and state they have standard size doorways in the home and that the walker she has will fit through the doorways. They deny needing a shower chair or BSC or other DME. Pt was able to bath/dress self and able to assist as needed. has been doing most home mgnt tasks. Pt manages her own medications. Transportation:? drives. DME: ?States has the following DME:?cane and walker ?Pt and state no need for further DME at this time.? HHC/SNF: No hx of either. Pt wishes to return home instead of going to a SNF. Pt and both interested in HHC for therapy. A list of HHC providers including quality and resource use data and consistent with the patient?s preferred geographic region, medical needs, and insurance network were provided from the [employer] Guide. Pt's 1st preference is [facility]. Call to [facility] and referral made. They are able to accept pt w/SOC tomorrow. Pt and made aware. Pt wishes to return home and states has no concerns with going home at time of discharge.??CM?to follow for any further discharge planning/needs.? Pt and voice no further concerns/needs at this time.? Advised them to ask for?CM?if any further questions/concerns/needs arise.? They voice understanding. PLAN:??Home w/[facility], spousal support, and discharge plans in place. Reba BSN?RN?CM
--- NOTE | 2023-05-13 14:32 | PHA.DC_ITS ---
Pharmacy [facility] Pharmacy Service has performed discharge medication reconciliation and counseling for this patient. 1. APIXABAN 2.5MG PO BID 2. NORCO 5/325MG 1-2T PO Q4H PRN PAIN The patient's discharge medication list was reviewed for discrepancies and discrepancies were resolved. The patient was counseled on the following discharge medications and changes in medications for homegoing were reviewed. The Reason for Use, instructions for use, and potential side effects were reviewed for all new medications. The patient's questions regarding all of their medications were answered. The patient was able to verbally demonstrate an understanding of their discharge medications. Patient was counseled by retail pharmacy merchandiserMone. Medications at Discharge Home Medications prednisone 10 mg tablet 10 mg PO DAILY RA FLARE UP 04/22/19 abatacept 50 mg/0.4 mL subcutaneous syringe (Orencia) 500 mg subcut QMONTH RA 07/14/22 brimonidine 0.2 %-timolol 0.5 % eye drops 1 drp ophthalmic (eye) BID EYE HEALTH 07/14/22 cholecalciferol (vitamin D3) 125 mcg (5,000 unit) capsule 125 mcg PO DAILY SUPPLEMENT 07/14/22 mecobalamin (vitamin B12) 5,000 mcg chewable tablet 5,000 mcg PO DAILY SUPPLEMENT 07/14/22 latanoprostene bunod 0.024 % eye drops (Vyzulta) 1 drp ophthalmic (eye) DAILY EYE HEALTH 10/30/22 bupropion HCl 150 mg 24 hr tablet, extended release 150 mg PO DAILY DEPRESSION 04/06/23 prednisone 2.5 mg tablet 2.5 mg PO DAILY RA 04/06/23 apixaban 2.5 mg tablet (Eliquis) 2.5 mg PO BID #42 tabs 05/13/23 hydrocodone-acetaminophen 5-325mg 5mg-325mg 1 - 2 tab PO Q4H PRN pain 5 days #30 tabs 05/13/23
--- NOTE | 2023-05-13 16:16 | DS.PCM_ITS ---
Providers Date of Admission: 05/12/23 Primary Care Physician: Demetra Allred DO Reason For Visit: LEFT FEMORAL NECK FRACTURE Diagnosis Discharge Diagnosis (1) Femoral neck fracture: Status: Acute Code(s): S72.009A - Fracture of unspecified part of neck of unspecified femur, initial encounter for closed fracture Qualifiers: Encounter type: initial encounter Fracture type: closed Laterality: left Qualified Code(s): S72.002A - Fracture of unspecified part of neck of left femur, initial encounter for closed fracture Plan Postop day #1 left hip percutaneous screw fixation for subacute femoral neck fracture PT OT 50% weightbearing left lower extremity Eliquis 2.5 mg twice daily Will switch from oxycodone to [place] secondary to nausea DC home later today per patient request after second round physical therapy Medications at Discharge Home Medications prednisone 10 mg tablet 10 mg PO DAILY RA FLARE UP 04/22/19 abatacept 50 mg/0.4 mL subcutaneous syringe (Orencia) 500 mg subcut QMONTH RA 1 brimonidine 0.2 %-timolol 0.5 % eye drops 1 drp ophthalmic (eye) BID EYE HEALTH 07/14/22 cholecalciferol (vitamin D3) 125 mcg (5,000 unit) capsule 125 mcg PO DAILY SUPPLEMENT 07/14/22 mecobalamin (vitamin B12) 5,000 mcg chewable tablet 5,000 mcg PO DAILY SUPPLEMENT 07/14/22 latanoprostene bunod 0.024 % eye drops (Vyzulta) 1 drp ophthalmic (eye) DAILY EYE HEALTH 10/30/22 bupropion HCl 150 mg 24 hr tablet, extended release 150 mg PO DAILY DEPRESSION 04/06/23 prednisone 2.5 mg tablet 2.5 mg PO DAILY RA 04/06/23 apixaban 2.5 mg tablet (Eliquis) 2.5 mg PO BID #42 tabs 05/13/23 hydrocodone-acetaminophen 5-325mg 5mg-325mg 1 - 2 tab PO Q4H PRN pain 5 days #30 tabs 05/13/23 Hospital Course Summary of Care Provided Hospital Course: 73-year-old female patient who had a ground-level fall back on 04-14-23 after her dog bit her foot and this caused her to loose her balance and fall. She did pro ceed to the emergency room department where x-rays were taken and were read as negative she was sent home she continued to have significant groin pain it did improve however due to the severity she proceeded to my office where I took an x-ray which demonstrated that she did indeed have a nondisplaced left femoral neck fracture I discussed with her that since she was over 3 weeks from surgery she had the options of nonweightbearing and monitoring with serial x-rays versus percutaneous screw fixation of the femoral neck fracture to allow for additional stability and prevent the risk of fracture displacement . She was unsure and wished to think it over on the weekend on 05/11/2023 the patient called her office and decided she wanted to proceed with the surgery. She underwent percutaneous screw fixation with an inverted triangle technique of the partially threaded cancellous screws on 05/12/2023 there is no intraoperative complications. Postop day #1 patient was started on Eliquis 2.5 mg twice daily for which she will continue for 3 3 weeks post hospital discharge her pain was well-controlled with oral pain medication patient wished to be discharged home on postop day #1 she got up and did physical therapy twice without any concerns. She will be discharged home with oxycodone 5 to 10 mg every 4 hours and Eliquis 2.5 mg twice daily for 3 weeks. She will follow-up in the office in 2 weeks for wound check and staple removal she will start outpatient physical therapy. She is instructed to leave her dressing intact for 72 hours postop and then to remove prior to her first shower then she should clean the incision daily with antibacterial soap and warm water and replace with a large bandage dry. She was instructed to call if she had any questions or concerns. There is no intrahospital complications. And again the patient did wish to be discharged home on postop day #1 as her request. Weight / BMI Weight Weight: 88 lb 13.541 oz Body Mass Index (BMI) 17.3 ABG / Lab / Microbiology Data 05/13/23 05:35 05/13/23 05:35 Laboratory: Laboratory Results - last 24 hr 05/13/23 05:35: WBC 17.3 H, RBC 5.05, Hgb 14.3, Hct 43.7, MCV 86.5, MCH 28.3, MCHC 32.7, RDW Std Deviation 43.5, RDW Coeff of Yunior 13.7, Plt Count 395, MPV 8.6, Sodium 137, Potassium 3.6, Chloride 102, Carbon Dioxide 30.0, Anion Gap 5, BUN 7, Creatinine 0.75, Estim Creat Clear Calc 31.88, Est GFR (MDRD) Af Amer 97, Est GFR (MDRD) Non-Af 81, BUN/Creatinine Ratio 9.3 L, Glucose 115 H, Calcium 8.8 Radiography Diagnostic Testing: Radiology Impression Hip/Pelvis X-Ray 05/12/23 14:00 IMPRESSION: Intraoperative exam as described above. Electronically Signed: Eleno Owens MD at 10:22 EDT , D/C Instructions Discharge Diet: No restrictions Weight Bearing Status: Partial weight bearing (50% left lower ext) Call your doctor if you observe: Shortness of breath and Chest pain Additional Dressing/Incision Instructions: Do not shower 72hrs post operatively. Begin daily showering warm water antibacterial soap postop day #3( 72hrs Post- operatively) and then daily. Leave the dressing on for 72 hours postoperatively then may remove prior to first shower and change dressing daily after this until no drainage for 2 consecutive days then may leave open to air. Wear compression stockings, may remove at night. Start physical therapy as directed in hospital. 50% weightbearing left lower extremity use walker during ambulation. follow prescriptions instructions do not take any other pain medication or differ dosing without consulting your physician. Do not take oral NSAIDs until blood thinner has been completed , then may begin the day after completion if needed . Call Dr. Lara's office with any concerns. Please Follow Up With: Sergio Lara DO When: 2 weeks Meaningful Use Info Meaningful Use Diagnoses (Choose all that apply): None applicable Discharge Plan Admission Admit Date/Time: 05/12/23 10:31 Primary Reason for Your Visit: Left femoral neck fracture Attending Provider: Sergio Lara Primary Care Provider: Demetra Allred Discharge Orders/Prescriptions Prescriptions: New Eliquis 2.5 mg tablet 2.5 mg PO BID Qty: 42 0RF hydrocodone-acetaminophen 5-325 mg tablet 1 - 2 tab PO Q4H PRN (Reason: pain) 5 Days Qty: 30 0RF Rx Instructions: Do not exceed 4000 mg of Tylenol per day. This medication contains 325mg of Tylenol per pill. Continued Vyzulta 0.024 % drops 1 drp ophthalmic (eye) DAILY brimonidine-timolol 0.2-0.5 % drops 1 drp ophthalmic (eye) BID cholecalciferol (vitamin D3) 125 mcg (5,000 unit) capsule 125 mcg PO DAILY mecobalamin (vitamin B12) 5,000 mcg tablet,chewable 5,000 mcg PO DAILY Orencia 50 mg/0.4 mL syringe 500 mg subcut QMONTH prednisone 10 MG tablet 10 mg PO DAILY prednisone 2.5 mg tablet 2.5 mg PO DAILY Patient Comments: TAKE 1 TABLET BY MOUTH DAILY FOR 90 DAYS bupropion HCl 150 mg tablet extended release 24 hr 150 mg PO DAILY Discontinued tramadol 50 mg tablet 50 mg PO Q8H PRN (Reason: pain) Qty: 20 0RF Rx Instructions: Narcotic pain medication can be addictive only take as needed Other Ambulatory Orders: 12 Lead EKG (Routine) Timeframe: [id number] Facility: [facility] - Location: Cardiovascular Services Ordered By: Dr. Farhan Joseph Referrals / Follow Up: Demetra Allred DO [Primary Care Provider] - Disposition Disposition (needs filled in before D/C Order can be placed): Home Health Service
== END 2023-05-13 15:05 | disposition home health service (06) | DRG 482 ==
LOC: ACINP 10:40 → MS3 13:09
PROVIDERS: Anesthesiology; Admitting Provider Orthopaedic Surgery; PCP Family Medicine; Visit Provider Orthopaedic Surgery
PROC: 0QH734Z Insertion of Internal Fixation Device into Left Upper Femur, Percutaneous Approach (ICD-10-PCS; principal; 2023-05-12 14:30)
DX: S72.002A Fracture of unspecified part of neck of left femur, initial encounter for closed fracture (principal); F12.90 Cannabis use, unspecified, uncomplicated; F17.210 Nicotine dependence, cigarettes, uncomplicated; W54.0XXA Bitten by dog, initial encounter
CPT/HCPCS: 36415; 73501; 76000; 80048; 85027; 86850; 86900; 86901; 93005; 94668; 97162; 97166; 97530; C1713; J7120; J2405

== ENCOUNTER 2023-06-01 14:20 | Outpatient (CLI) | payer MEDICARE, OTHER, SELFPAY ==
[2023-06-01] MEDS: 0.9% NaCl Peripheral Flush Adult/Peds IV (14:53)
[2023-06-01 14:54] VITALS: BP 156/83; PULSE 70; RESP 16; TEMP 36.3; O2SAT 92; BMI 17.6
[2023-06-01] MEDS: 0.9% NaCl IVPB Med Flush (250 mL) 15 ML IV (15:03)
[2023-06-01 15:40] VITALS: BP 157/84; PULSE 102; RESP 16; TEMP 36.3; O2SAT 97
[2023-06-01 15:51] VITALS: BP 157/84; RESP 16; TEMP 36.3; O2SAT 97
== END 2023-06-01 14:21 | disposition home or self-care (01) ==
LOC: MEDOUTP 14:20
PROVIDERS: PCP Family Medicine; Referring Provider Internal Medicine Rheumatology; Visit Provider Internal Medicine Rheumatology
DX: M06.9 Rheumatoid arthritis, unspecified (principal)
CPT/HCPCS: 96365; J7050; A4216; J0129

== ENCOUNTER 2023-06-30 13:21 | Outpatient (CLI) | payer MEDICARE, OTHER, SELFPAY ==
[2023-06-30 13:54] VITALS: BP 166/78; PULSE 72; RESP 16; TEMP 36.2; O2SAT 98; BMI 17.6
[2023-06-30] MEDS: 0.9% NaCl Peripheral Flush Adult/Peds IV (14:05)
[2023-06-30] MEDS: 0.9% NaCl IVPB Med Flush (250 mL) 15 ML IV (14:06)
[2023-06-30] MEDS: NORMAL SALINE 0.9% IV (14:08)
[2023-06-30] MEDS: ABATACEPT IV (14:08)
[2023-06-30 15:00] VITALS: BP 157/82; PULSE 73; RESP 16; TEMP 36.3; O2SAT 97
== END 2023-06-30 13:22 | disposition home or self-care (01) ==
PROVIDERS: PCP Family Medicine; Referring Provider Internal Medicine Rheumatology; Visit Provider Internal Medicine Rheumatology
DX: M06.9 Rheumatoid arthritis, unspecified (principal)
CPT/HCPCS: 96365; J7050; A4216; J0129

== ENCOUNTER 2023-07-28 13:24 | Outpatient (CLI) | payer MEDICARE, OTHER, SELFPAY ==
[2023-07-28] MEDS: 0.9% NaCl IVPB Med Flush (250 mL) 15 ML IV (14:02)
[2023-07-28] MEDS: 0.9% NaCl Peripheral Flush Adult/Peds IV (14:02)
[2023-07-28] MEDS: ABATACEPT IV (14:04)
[2023-07-28] MEDS: NORMAL SALINE 0.9% IV (14:04)
[2023-07-28 14:06] VITALS: BP 174/87; PULSE 75; RESP 16; TEMP 36; O2SAT 95; BMI 17.6
[2023-07-28 15:03] VITALS: BP 169/92; PULSE 59; RESP 16; TEMP 36.3; O2SAT 96
== END 2023-07-28 13:25 | disposition home or self-care (01) ==
LOC: MEDOUTP 13:24
PROVIDERS: PCP Family Medicine; Referring Provider Internal Medicine Rheumatology; Visit Provider Internal Medicine Rheumatology
DX: M06.9 Rheumatoid arthritis, unspecified (principal)
CPT/HCPCS: 96365; J7050; A4216; J0129

== ENCOUNTER 2023-09-04 12:57 | Outpatient (CLI) | payer MEDICARE, OTHER, SELFPAY ==
[2023-09-04] MEDS: 0.9% NaCl Peripheral Flush Adult/Peds IV (13:18)
[2023-09-04] MEDS: 0.9% NaCl IVPB Med Flush (250 mL) 15 ML IV (13:18)
[2023-09-04 13:20] VITALS: BP 147/71; PULSE 58; RESP 16; TEMP 35.6; O2SAT 99
[2023-09-04] MEDS: ABATACEPT IV (13:20)
[2023-09-04] MEDS: NORMAL SALINE 0.9% IV (13:20)
[2023-09-04 14:11] VITALS: BP 142/71; PULSE 59; RESP 16; TEMP 35.9; O2SAT 98
== END 2023-09-04 12:58 | disposition home or self-care (01) ==
LOC: MEDOUTP 12:57
PROVIDERS: PCP Family Medicine; Referring Provider Internal Medicine Rheumatology; Visit Provider Internal Medicine Rheumatology
DX: M06.9 Rheumatoid arthritis, unspecified (principal)
CPT/HCPCS: 96365; J7050; A4216; J0129

== ENCOUNTER 2023-10-02 12:55 | Outpatient (CLI) | payer MEDICARE, OTHER, SELFPAY ==
--- OUTSIDE RECORDS SUMMARY | 2023-10-02 13:19 | XMS RPT_ITS | CCD ---
Author Name Unknown Address [address] [place] [address] Organization [facility] Care Team Providers Care Furnace Mason Name Role Phone ZANDER TAPIA Attending Unavailable ZANDER TAPIA Primary Care Unavailable ZANDER TAPIA Admitting Unavailable Bhavesh ACUÑA MD, Ralf Echevarria Primary Care Provider Charisma blancailable Demetra Allred DO Primary Care Provider Allergies Allergy Classification Reported Allergen(s) Allergy Type Date of Onset Reaction(s) Facility (2 sources) Azithromycin Drug Allergy 7 [facility] (2 sources) iburprophen [Other] Propensity to adverse reactions 7 [facility] Medications Completed/Discontinued Medications Medication Drug Class(es) Dates Sig (Normalized) Sig (Original) DULoxetine 30 mg delayed release oral capsule (2 sources) Serotonin and Norepinephrine Reuptake Inhibitor Start: 04-28-2020 take 1 capsule by mouth twice daily DULoxetine (CYMBALTA) 30 mg capsule Take 1 capsule by mouth twice daily. 180 capsule 0 04/28/2020 Active Problems Problem Classification Problem Date Documented Da te Episodic/Chronic Adjustment disorders (2 sources) Adjustment disorder with depressed mood; Translations: [Adjustment disorder with depressed mood] Onset: 08-02-2008 08-02-2008 Chronic Anxiety disorders (2 sources) Generalized anxiety disorder; Translations: [Generalized anxiety disorder] Onset: 08-02-2008 08-02-2008 Chronic Glaucoma (2 sources) Bilateral glaucoma; Translations: [Unspecified glaucoma] Onset: 04-09-2019 04-09-2019 Chronic Rheumatoid arthritis and related disease (4 sources) Rheumatoid arthritis, unspecified; Translations: [Rheumatoid arthritis of multiple joints] Onset: 08-19-2017 08-19-2017 Chronic Substance-related disorders (2 sources) Tobacco user; Translations: [Nicotine dependence, unspecified, uncomplicated] Onset: 11-12-2006 11-12-2006 Chronic Results Test Name Value Interpretation Reference Range Facil ity Encounters Encounter Date Encounter Type Care Provider Facility Start: 01-05-2023 ambulatory Fabienne [facility] [place] Procedures Date Procedure Procedure Detail Performing Clinician Start: 04-09-2019 Adult depression scr eening assessment Sathya Cui Start: 07-29-2016 Colonoscopy Sathya moscoso Plan of Treatment Date Care Activity Detail Author Start: 04-09-2024 LIPID SCREEN LIPID SCREEN [facility] Start: 06-05-2023 Influenza vaccination INFLUENZA (Sea son Ended) [facility] Start: 10-05-2022 ADVANCE DIRECTIVE DISCUSSION ADVANCE DIRECTIVE DISCUSSION [facility] Start: 10-05-2022 DEPRESSION ASSESSMENT DEPRESSION ASS ESSMENT [facility] Start: 08-10-2022 DIABETES SCREEN DIABETES SCREEN [facility] Start: 06-05-2022 Influenza vaccination INFLUENZA (#1) [facility] Start: 10-05-2021 ADVANCE DIRECTIVE DISCUSSION ADVANCE DIRECTIVE DISCUSSION [facility] Start: 04-09-2020 Adult depression scr eening assessment DEPRESSION SCREENING [facility] Start: 07-29-2017 Colonoscopy COLONOSCOPY [facility] Start: 07-29-2017 COLORECTAL CANCER SCREENING COLORECTAL CANCER SCREENING [facility] Start: 2015 BONE DENSITY BONE DENSITY [facility] Start: 02-03-2011 Urine microalbumin profile DTAP,TDAP ,TD (1 - Tdap) [facility] Start: 2000 SHINGRIX VACCINE (1 of 2) SHINGRIX V ACCINE (1 of 2) [facility] Start: 1995 COLOGUARD (FIT-DNA) COLOGUARD (FIT-D NA) [facility] Start: [address] COLONOGRAPHY [facility] Start: 1995 FECAL OCCULT BLOOD FECAL OCCULT BLOO D [facility] Start: 1995 SIGMOIDOSCOPY SIGMOIDOSCOPY [facility] Start: 1990 Mammography MAMMOGRAM [facility] Start: 1969 SHINGRIX VACCINE (1 of 2) SHINGRIX V ACCINE (1 of 2) [facility] Start: 1956 PNEUMOCOCCAL: 65+ (1 - PCV) PNEUMOCOCCAL: 65+ (1 - PCV) [facility] Start: 1950 COVID-19 VACCINE (#1) COVID-19 VACCI NE (#1) [facility] Immunizations Immunization Date Immunization Notes Care Provider Flora hicks 02-02-2011 tetanus and diphther ia toxoids, adsorbed, preservative free, for adult use (2 Lf of tetanus toxoid and 2 Lf of diphtheria toxoid) Sathya Cui [facility] Work Phone: Payers Date Payer Category Payer Unknown [employer] 2ND [id number] 2020-Present [phone] [address] [place] [address] Indemnity [id number] 2015 Medicare MEDICARE MEDICAR E A AND B [id number] 2015-Present [phone] [place] [address] Medicare [id number] 1959 Medicare [id number] 1950 Unknown [id number] Social History Date Type Detail Facility [facility]: [facility] History of tobacco use Cigarette Smoker [facility] Start: 05-27-2018 Cigarettes smoked cu rrent (pack per day) - Reported 1 [facility] Start: 05-27-2018 Tobacco use and exposure Smoke less tobacco non-user [facility] Start: 04-09-2019 Alcohol intake Current non-dr rausch of alcohol (finding) [facility] Start: 1950 Sex Assigned At Not on file [facility] Clinical Note 01-05-2023 Note Date & Type Note Facility 01-05-2023 Note Patient Outreach (REMBERTO [facility]NP[facility]) [place] ([id number]) 1950 F Date Time Provider Department 01/05/23 FABIENNE BOONE During your visit today, we recorded the following information about you: Fabienne Boone MA 01/05/2023 9:42 AM Signed POPULATION HEALTH NAVIGATION OUTREACH Action/ HCCM06.9 - Rheumatoid arthritis involving multiple sites ([facility]) PCP UPDATED Patient Identified by Name and : NO Outreach Outcome/Action PCP field updated Did you use a PCP flex slot to schedule this appointment? N/A Reason for Outreach Care Gap or Scheduling/Wellness visits Payer: Payor: MEDICARE / Plan: MEDICARE A AND B / Product Type: Medicare / Care Gap Reviewed:: N/A Reminder: Reminder note to check Health Maintenance for items below Health Maintenance items due: COVID-19 VACCINE(1) Never done PNEUMOCOCCAL: 65+(1 - PCV) Never done MAMMOGRAM Never done SHINGRIX VACCINE(1 of 2) Never done DTAP,TDAP,TD(1 - Tdap) due on 02/03/2011 BONE DENSITY Never done COLORECTAL CANCER SCREENING due on 07/29/2017 DIABETES SCREEN due on 08/10/2022 ADVANCE DIRECTIVE DISCUSSION Never done DEPRESSION ASSESSMENT Never done Navigation Signature: Fabienne Boone MA January 05, 2023 9:40 AM Allergies As of Date: 01/05/2023 Noted Allergy Reaction iburprophen [Other] 11/12/2006 ZITHROMAX (AZITHROMYCIN) 11/12/2006 Date Reviewed: 02/22/2021 Reviewed by: Alyx Abraham PA-C - Fully Assessed Reason for Visit: Population Health Navigation Outreach [3910] Cmt: [facility] GAP Prescriptions as of 01/05/2023 - hydrOXYchloroQUINE (PLAQUENIL) 200 mg tablet Take 1 tablet by mouth once daily. - predniSONE (DELTASONE) 10 mg tablet Take 1 tablet by mouth once daily. for 5 days as needed for flare of arthritis - DULoxetine (CYMBALTA) 30 mg capsule Take 1 capsule by mouth twice daily. - FOLIC ACID ORAL Take 1 mg by mouth. Problem List As Of Date 01/05/2023 Noted Resolved TOBACCO USE DISORDER [F17.200] 11/12/2006 ADJUSTMENT DISORDER WITH DEPRESSED MOOD [F43.21]08/02/2008 GENERALIZED ANXIETY DIS [F41.1] 08/02/2008 Rheumatoid arthritis involving multiple sites (*08/19/2017 Glaucoma of both eyes [H40.9] 04/09/2019 Encounter Status:Closed by FABIENNE BOONE on 01/05/23 [facility] Progress note 01-05-2023 Note Date & Type Note Facility 01-05-2023 Note HNO ID: [id number] Author: Fabienne Boone MA Service: ? Author Type: Electrical Engineering Director Type: Progress Notes Filed: 01/05/2023 9:42 AM Note Text: POPULATION HEALTH NAVIGATION OUTREACH Action/ HCCM06.9 - Rheumatoid arthritis involving multiple sites ([facility]) PCP UPDATED Patient Identified by Name and : NO Outreach Outcome/Action PCP field updated Did you use a PCP flex slot to schedule this appointment? N/A Reason for Outreach Care Gap or Scheduling/Wellness visits Payer: Payor: MEDICARE / Plan: MEDICARE A AND B / Product Type: Medicare / Care Gap Reviewed:: N/A Reminder: Reminder note to check Health Maintenance for items below Health Maintenance items due: COVID-19 VACCINE(1) Never done PNEUMOCOCCAL: 65+(1 - PCV) Never done MAMMOGRAM Never done SHINGRIX VACCINE(1 of 2) Never done DTAP,TDAP,TD(1 - Tdap) due on 02/03/2011 BONE DENSITY Never done COLORECTAL CANCER SCREENING due on 07/29/2017 DIABETES SCREEN due on 08/10/2022 ADVANCE DIRECTIVE DISCUSSION Never done DEPRESSION ASSESSMENT Never done Navigation Signature: Fabienne Boone MA January 05, 2023 9:40 AM [facility] History of Present illness Narrative 01-05-2023 Fabienne Boone MA - 01/05/2023 9:40 AM EDT Note Date & Type Note Facility 01-05-2023 History of Presen t illness Narrative POPULATION HEALTH NAVIGATION OUTREACH Action/I HCCM06.9 - Rheumatoid arthritis involving multiple sites ([facility]) PCP UPDATED Patient Identified by Name and : NO Outreach Outcome/Action PCP field updated Did you use a PCP flex slot to schedule this appointment? N/A Reason for Outreach Care Gap or Scheduling/Wellness visits Payer: Payor: MEDICARE / Plan: MEDICARE A AND B / Product Type: Medicare / Care Gap Reviewed:: N/A Reminder: Reminder note to check Health Maintenance for items below Health Maintenance items due: COVID-19 VACCINE(1) Never done PNEUMOCOCCAL: 65+(1 - PCV) Never done MAMMOGRAM Never done SHINGRIX VACCINE(1 of 2) Never done DTAP,TDAP,TD(1 - Tdap) due on 02/03/2011 BONE DENSITY Never done COLORECTAL CANCER SCREENING due on 07/29/2017 DIABETES SCREEN due on 08/10/2022 ADVANCE DIRECTIVE DISCUSSION Never done DEPRESSION ASSESSMENT Never done Navigation Signature: Fabienne Boone MA January 05, 2023 9:40 AM documented in this encounter [facility] Progress note 05-20-2022 Note Date & Type Note Facility 05-20-2022 Note HNO ID: [id number] Author: Sathya HARPER Service: ? Author Type: ? Type: Progress Notes Filed: 05/20/2022 12:17 PM Note Text: POPULATION HEALTH NAVIGATION OUTREACH Action/FYI Patient declined any scheduling. Pt identified by name and : YES, via phone Outreach Outcome/Action Spoke to patient or caregiver: Patient declined Did you use a PCP flex slot to schedule this appointment? N/A Reason for Outreach HCC or suspected condition Payer: Payor: MEDICARE / Plan: MEDICARE A AND B / Product Type: Medicare / Care Gap Reviewed:: Annual Wellness visit Breast Cancer screening Colorectal Cancer Screening Reminder: Reminder note to check Health Maintenance for items below Health Maintenance items due: COVID-19 VACCINE(1) Never done PNEUMOCOCCAL: 65+(1 - PCV) Never done SHINGRIX VACCINE(1 of 2) Never done MAMMOGRAM Never done DTAP,TDAP,TD(1 - Tdap) due on 02/03/2011 BONE DENSITY Never done COLORECTAL CANCER SCREENING due on 07/29/2017 DEPRESSION SCREENING due on 04/09/2020 ADVANCE DIRECTIVE DISCUSSION Never done Message Sent to Practice: No Navigation Signature: Sathya Cui PSS May 20, 2022 12:16 PM [facility]-20-2022 Note Date & Type Note Facility 05-20-2022 Note Patient Outreach (REMBERTO ESCUDERO) [place] ([id number]) 1950 F Date Time Provider Department 05/20/22 SATHYA CUI ([facility] [place] During your visit today, we recorded the following information about you: Sathya Cui [facility] 05/20/2022 12:17 PM Signed POPULATION HEALTH NAVIGATION OUTREACH Action/FYI Patient declined any scheduling. Pt identified by name and : YES, via phone Outreach Outcome/Action Spoke to patient or caregiver: Patient declined Did you use a PCP flex slot to schedule this appointment? N/A Reason for Outreach HCC or suspected condition Payer: Payor: MEDICARE / Plan: MEDICARE A AND B / Product Type: Medicare / Care Gap Reviewed:: Annual Wellness visit Breast Cancer screening Colorectal Cancer Screening Reminder: Reminder note to check Health Maintenance for items below Health Maintenance items due: COVID-19 VACCINE(1) Never done PNEUMOCOCCAL: 65+(1 - PCV) Never done SHINGRIX VACCINE(1 of 2) Never done MAMMOGRAM Never done DTAP,TDAP,TD(1 - Tdap) due on 02/03/2011 BONE DENSITY Never done COLORECTAL CANCER SCREENING due on 07/29/2017 DEPRESSION SCREENING due on 04/09/2020 ADVANCE DIRECTIVE DISCUSSION Never done Message Sent to Practice: No Navigation Signature: Sathya Cui [facility] May 20, 2022 12:16 PM Allergies As of Date: 05/20/2022 Noted Allergy Reaction iburprophen [Other] 11/12/2006 ZITHROMAX (AZITHROMYCIN) 11/12/2006 Date Reviewed: 02/22/2021 Reviewed by: Alyx Abraham PA-C - Fully Assessed Reason for Visit: Population Health Navigation Outreach [3910] Cmt: HCC Prescriptions as of 05/20/2022 - hydrOXYchloroQUINE (PLAQUENIL) 200 mg tablet Take 1 tablet by mouth once daily. - predniSONE (DELTASONE) 10 mg tablet Take 1 tablet by mouth once daily. for 5 days as needed for flare of arthritis - DULoxetine (CYMBALTA) 30 mg capsule Take 1 capsule by mouth twice daily. - FOLIC ACID ORAL Take 1 mg by mouth. Problem List As Of Date 05/20/2022 Noted Resolved TOBACCO USE DISORDER [F17.200] 11/12/2006 ADJUSTMENT DISORDER WITH DEPRESSED MOOD [F43.21]08/02/2008 GENERALIZED ANXIETY DIS [F41.1] 08/02/2008 Rheumatoid arthritis involving multiple sites (*08/19/2017 Glaucoma of both eyes [H40.9] 04/09/2019 Encounter Status:Closed by SATHYA MICHEL on 05/20/22 [facility] History of Present illness Narrative 05-20-2022 Sathya HARPER - 05/20/2022 12:16 PM EDT Note Date & Type Note Facility 05-20-2022 History of Presen t illness Narrative POPULATION HEALTH NAVIGATION OUTREACH Action/FYI Patient declined any scheduling. Pt identified by name and : YES, via phone Outreach Outcome/Action Spoke to patient or caregiver: Patient declined Did you use a PCP flex slot to schedule this appointment? N/A Reason for Outreach HCC or suspected condition Payer: Payor: MEDICARE / Plan: MEDICARE A AND B / Product Type: Medicare / Care Gap Reviewed:: Annual Wellness visit Breast Cancer screening Colorectal Cancer Screening Reminder: Reminder note to check Health Maintenance for items below Health Maintenance items due: COVID-19 VACCINE(1) Never done PNEUMOCOCCAL: 65+(1 - PCV) Never done SHINGRIX VACCINE(1 of 2) Never done MAMMOGRAM Never done DTAP,TDAP,TD(1 - Tdap) due on 02/03/2011 BONE DENSITY Never done COLORECTAL CANCER SCREENING due on 07/29/2017 DEPRESSION SCREENING due on 04/09/2020 ADVANCE DIRECTIVE DISCUSSION Never done Message Sent to Practice: No Navigation Signature: Sathya HARPER May 20, 2022 12:16 PM documented in this encounter [facility] Summary Purpose Family History No Family History Records FoundNo Family History Records Found Advance Directives No Advanced Directives Records FoundNo Advanced Directives Records Found Additional Source Comments INFORMATION SOURCE (unrecogn ized section and content) DATE CREATED AUTHOR AUTHOR'S ORGANIZ ATION 01/08/2023 [facility] Source Comments (unrecognize d section and content) In the event this informatio n is protected by the Federal Confidentiality of Alcohol and Drug Abuse Patient Records regulations: The Federal rules restrict any use of the information to criminally investigate or prosecute any alcohol or drug abuse patient.[facility] the event this information is protected by the Federal Confidentiality of Alcohol and Drug Abuse Patient Records regulations: The Federal rules restrict any use of the information to criminally investigate or prosecute any alcohol or drug abuse patient.[facility] Reason for Visit (unrecogniz ed section and content) Reason Onset Date Comments Population Health Navigation Outreach 01/05/2023 [facility] Care Teams (unrecognized sec tion and content) Furnace Mason Relationship Specialty Start Date End Date Demetra Allred, DO [address] [place] [address] PCP - General Family Medicine 01/05/23 FOR RECORDS PERTAINING TO PATIENTS WHO ARE OR HAVE BEEN ENROLLED IN A CHEMICAL DEPENDENCY/SUBSTANCEABUSE PROGRAM, SOME INFORMATION MAY BE OMITTED. This clinical summary was aggregated from multiple sources. Caution should be exercised in using it in the provision of clinical care. This summary normalizes information from multiple sources, and as a consequence, information in this document may materially change the coding, format and clinical context of patient data. In addition, data may be omitted in some cases. CLINICAL DECISIONS SHOULD BE BASED ON THE PRIMARY CLINICAL RECORDS. [employer] [facility] provides no warranty or guarantee of the accuracy or completeness of information in this document.
[2023-10-02 13:20] VITALS: BP 157/82; PULSE 61; RESP 16; TEMP 36.7; O2SAT 95; BMI 17.6
[2023-10-02] MEDS: 0.9% NaCl Peripheral Flush Adult/Peds IV (13:28)
[2023-10-02] MEDS: 0.9% NaCl IVPB Med Flush (250 mL) 15 ML IV (13:46)
[2023-10-02] MEDS: ABATACEPT IV (13:47)
[2023-10-02] MEDS: NORMAL SALINE 0.9% IV (13:47)
[2023-10-02 14:40] VITALS: BP 156/87; PULSE 56; RESP 16; TEMP 37; O2SAT 95
== END 2023-10-02 12:56 | disposition home or self-care (01) ==
LOC: MEDOUTP 12:55
PROVIDERS: PCP Family Medicine; Referring Provider Internal Medicine Rheumatology; Visit Provider Internal Medicine Rheumatology
DX: M06.9 Rheumatoid arthritis, unspecified (principal)
CPT/HCPCS: 96365; J7050; A4216; J0129

== ENCOUNTER 2023-10-30 13:26 | Outpatient (CLI) | payer MEDICARE, OTHER, SELFPAY ==
[2023-10-30 13:35] VITALS: BP 140/80; PULSE 60; RESP 16; TEMP 36.2; O2SAT 95; BMI 17.6
[2023-10-30] MEDS: 0.9% NaCl Peripheral Flush Adult/Peds IV (13:45)
[2023-10-30] MEDS: ABATACEPT IV (14:01)
[2023-10-30] MEDS: 0.9% NaCl IVPB Med Flush (250 mL) 15 ML IV (14:01)
[2023-10-30] MEDS: NORMAL SALINE 0.9% IV (14:01)
--- OUTSIDE RECORDS SUMMARY | 2023-10-30 14:03 | XMS RPT_ITS | CCD ---
Author Name Unknown Address [address] [place] [address] Organization [facility] Care Team Providers Care Trade Union Secretary Name Role Phone ZANDER TAPIA Attending Unavailable ZANDER TAPIA Primary Care Unavailable ZANDER TAPIA Admitting Unavailable Bhavesh ACUÑA MD, Ralf Echevarria Primary Care Provider Charisma blancailaDemetra Morales DO Primary Care Provider [phone] Allergies Allergy Classification Reported Allergen(s) Allergy Type Date of Onset Reaction(s) Facility (2 sources) Azithromycin Drug Allergy 7 [facility] (2 sources) iburprophen [Other] Propensity to adverse reactions 7 [facility] Medications Completed/Discontinued Medications Medication Drug Class(es) [...] Provider Facility Start: 01-05-2023 ambulatory Fabienne [facility] Procedures Date Procedure Procedure Detail Performing Clinician Start: 04-09-2019 Adult depression scr eening assessment Sathya Cui Start: 07-29-2016 Colonoscopy Sathya moscoso Plan of Treatment Date Care Activity Detail Author Start: 04-09-2024 LIPID SCREEN LIPID SCREEN [facility] Start: 06-05-2023 Influenza vaccination INFLUENZA (Sea son Ended) [facility] Start: 10-05-2022 ADVANCE DIRECTIVE DISCUSSION ADVANCE DIRECTIVE DISCUSSION [facility] Start: 10-05-2022 DEPRESSION ASSESSMENT DEPRESSION ASS ESSMENT [facility] Start: 08-10-2022 DIABETES SCREEN DIABETES SCREEN [facility] Start: 06-05-2022 Influenza vaccination INFLUENZA (#1) [facility] Start: 10-05-2021 ADVANCE DIRECTIVE DISCUSSION ADVANCE DIRECTIVE DISCUSSION [facility] Start: 04-09-2020 Adult depression scr eening assessment DEPRESSION SCREENING [facility] Start: 07-29-2017 Colonoscopy COLONOSCOPY [facility] Start: 07-29-2017 COLORECTAL CANCER SCREENING COLORECTAL CANCER SCREENING [facility] Start: 2015 BONE DENSITY BONE DENSITY [facility] Start: 02-03-2011 Urine microalbumin profile DTAP,TDAP ,TD (1 - Tdap) [facility] Start: 2000 SHINGRIX VACCINE (1 of 2) SHINGRIX V ACCINE (1 of 2) [facility] Start: 1995 COLOGUARD (FIT-DNA) COLOGUARD (FIT-D NA) [facility] Start: [address] COLONOGRAPHY [facility] Start: 1995 FECAL OCCULT BLOOD FECAL OCCULT BLOO D [facility] Start: 1995 SIGMOIDOSCOPY SIGMOIDOSCOPY [facility] Start: 1990 Mammography MAMMOGRAM [facility] Start: 1969 SHINGRIX VACCINE (1 of 2) SHINGRIX V ACCINE (1 of 2) [facility] Start: 1956 PNEUMOCOCCAL: 65+ (1 - PCV) PNEUMOCOCCAL: 65+ (1 - PCV) [facility] Start: 1950 COVID-19 VACCINE (#1) COVID-19 VACCI NE (#1) [facility] Immunizations Immunization Date Immunization Notes Care Provider Flora hicks 02-02-2011 tetanus and diphther ia toxoids, adsorbed, preservative free, for adult use (2 Lf of tetanus toxoid and 2 Lf of diphtheria toxoid) Sathya Cui [facility] Work Phone: Payers Date Payer Category Payer Unknown [employer] I[employer] 2ND [id number] 2020-Present [phone] [address] [place] [address] Indemnity [id number] 2015 Medicare MEDICARE MEDICAR E A AND B [id number] 2015-Present [phone] [place] [address] Medicare [id number] 1959 Medicare [id number] 1950 Unknown [id number] Social History Date Type Detail Facility Start: 05-27-2018 [facility] History of tobacco use Cigarette Smoker C [facility] Start: 05-27-2018 Cigarettes smoked cu rrent (pack per day) - Reported 1 [facility] Start: 05-27-2018 Tobacco use and exposure Smoke less tobacco non-user [facility] Start: 04-09-2019 Alcohol intake Current non-dr rausch of alcohol (finding) [facility] Start: 1950 Sex Assigned At Not on file C [facility] Clinical Note 01-05-2023 Note Date & Type Note Facility 01-05-2023 Note Patient Outreach (REMBERTO TNPB) [place] ([id number]) 1950 F Date Time Provider Department 01/05/23 FABIENNE BOONE During your visit today, we recorded the following information about you: Fabienne Boone MA 01/05/2023 9:42 AM Signed POPULATION HEALTH NAVIGATION OUTREACH Action/ HCCM06.9 - Rheumatoid arthritis involving multiple sites ([facility]) PCP UPDATED Patient Identified by Name and [...] Visit: Population Health Navigation Outreach [3910] Cmt: [facility] GAP Prescriptions as of 01/05/2023 - hydrOXYchloroQUINE [...] Encounter Status:Closed by FABIENNE BOONE on 01/05/23 [facility] Progress note 01-05-2023 Note Date & Type Note Facility 01-05-2023 Note HNO ID: [id number] Author: Fabienne Boone MA Service: ? Author Type: Mortgage Banker Type: Progress Notes Filed: 01/05/2023 9:42 AM Note Text: POPULATION HEALTH NAVIGATION OUTREACH Action/ HCCM06.9 - Rheumatoid arthritis involving multiple sites ([facility]) PCP UPDATED Patient Identified by Name and [...] Boone MA January 05, 2023 9:40 AM [facility] History of Present illness Narrative 01-05-2023 Fabienne Boone MA - 01/05/2023 9:40 AM EDT Note Date & Type Note Facility 01-05-2023 History of Presen t illness Narrative POPULATION HEALTH NAVIGATION OUTREACH Action/I HCCM06.9 - Rheumatoid arthritis involving multiple sites ([facility]) PCP UPDATED Patient Identified by Name and [...] 2023 9:40 AM documented in this encounter [facility] Progress note 05-20-2022 Note Date & Type Note Facility 05-20-2022 Note HNO ID: [id number] Author: Sathya HARPER Service: ? Author Type: [...] Cui PSS May 20, 2022 12:16 PM [facility] 05-20-2022 Note Date & Type Note Facility 05-20-2022 Note Patient Outreach (REMBERTO ESCUDERO) [place] ([id number]) 1950 F Date Time Provider Department 05/20/22 SATHYA CUI ([facility]) [place] During your visit today, we recorded the following information about you: Sathya Cui [facility] 05/20/2022 12:17 PM Signed POPULATION HEALTH NAVIGATION [...] to Practice: No Navigation Signature: Sathya Cui [facility] May 20, 2022 12:16 PM Allergies As [...] Encounter Status:Closed by SATHYA MICHEL on 05/20/22 [facility] History of Present illness Narrative 05-20-2022 Sathya [...] 2022 12:16 PM documented in this encounter [facility] Summary Purpose Family History No Family History Records FoundNo Family History Records Found Advance Directives No Advanced Directives Records FoundNo Advanced Directives Records Found Additional Source Comments INFORMATION SOURCE (unrecogn ized section and content) DATE CREATED AUTHOR AUTHOR'S ORGANIZ ATION 01/08/2023 [facility] Source Comments (unrecognize d section and content) In the event this informatio n is protected by the Federal Confidentiality of Alcohol and Drug Abuse Patient Records regulations: The Federal rules restrict any use of the information to criminally investigate or prosecute any alcohol or drug abuse patient.[facility] the event this information is protected by the Federal Confidentiality of Alcohol and Drug Abuse Patient Records regulations: The Federal rules restrict any use of the information to criminally investigate or prosecute any alcohol or drug abuse patient.[facility] Reason for Visit (unrecogniz ed section and content) Reason Onset Date Comments Population Health Navigation Outreach 01/05/2023 [facility] Care Teams (unrecognized sec tion and content) Trade Union Secretary Relationship Specialty Start Date End Date Demetra Allred, DO [address] [place] [address] PCP - General Family Medicine 01/05/23 FOR [...] BE BASED ON THE PRIMARY CLINICAL RECORDS. [facility]. provides no warranty or guarantee of the accuracy or completeness of information in this document.
[2023-10-30 14:54] VITALS: BP 140/81; PULSE 61; RESP 16; TEMP 36.8; O2SAT 95
== END 2023-10-30 13:27 | disposition home or self-care (01) ==
LOC: MEDOUTP 13:28
PROVIDERS: PCP Family Medicine; Referring Provider Internal Medicine Rheumatology; Visit Provider Internal Medicine Rheumatology
DX: M06.9 Rheumatoid arthritis, unspecified (principal)
CPT/HCPCS: 96365; J7050; A4216; J0129

== ENCOUNTER 2023-11-27 13:22 | Outpatient (CLI) | payer MEDICARE, OTHER, SELFPAY ==
[2023-11-27 13:32] VITALS: BP 198/103; PULSE 60; RESP 16; TEMP 36.6; O2SAT 94
[2023-11-27] MEDS: 0.9% NaCl Peripheral Flush Adult/Peds IV (13:45)
[2023-11-27 13:58] VITALS: BP 197/104; PULSE 61
--- OUTSIDE RECORDS SUMMARY | 2023-11-27 14:23 | XMS RPT_ITS | CCD ---
Author Name Unknown Address [address] [place] [address] Organization [facility] Care Team Providers Care Final Coat Sprayer Name Role Phone ZANDER TAPIA Attending Unavailable ZANDER TAPIA Primary Care Unavailable ZANDER TAPIA Admitting Unavailable Bhavesh ACUÑA MD, Ralf Echevarria Primary Care Provider Charisma blancailable Demetra Allred DO Primary Care Provider Allergies Allergy Classification Reported Allergen(s) Allergy Type Date of Onset Reaction(s) Facility (2 sources) Azithromycin Drug Allergy 7 [facility] (2 sources) iburprophen [Other] Propensity to adverse reactions 7 [facility] Medications Completed/Discontinued Medications Medication Drug Class(es) Dates [...] Provider Facility Start: 01-05-2023 ambulatory Fabienne [facility] Procedures Date Procedure Procedure Detail Performing Clinician Start: 04-09-2019 Adult depression scr eening assessment Sathya Cui Start: 07-29-2016 Colonoscopy Sathya moscoso Plan of Treatment Date Care Activity Detail Author Start: 04-09-2024 LIPID SCREEN LIPID SCREEN [facility] Start: 06-05-2023 Influenza vaccination INFLUENZA (Sea son Ended) [facility] Start: 10-05-2022 ADVANCE DIRECTIVE DISCUSSION ADVANCE DIRECTIVE DISCUSSION [facility] Start: 10-05-2022 DEPRESSION ASSESSMENT DEPRESSION ASS ESSMENT [facility] Start: 08-10-2022 DIABETES SCREEN DIABETES SCREEN [facility] Start: 06-05-2022 Influenza vaccination INFLUENZA (#1) [facility] Start: 10-05-2021 ADVANCE DIRECTIVE DISCUSSION ADVANCE DIRECTIVE DISCUSSION [facility] Start: 04-09-2020 Adult depression scr eening assessment DEPRESSION SCREENING [facility] Start: 07-29-2017 Colonoscopy COLONOSCOPY [facility] Start: 07-29-2017 COLORECTAL CANCER SCREENING COLORECTAL CANCER SCREENING [facility] Start: 2015 BONE DENSITY BONE DENSITY [facility] Start: 02-03-2011 Urine microalbumin profile DTAP,TDAP ,TD (1 - Tdap) [facility] Start: 2000 SHINGRIX VACCINE (1 of 2) SHINGRIX V ACCINE (1 of 2) [facility] Start: 1995 COLOGUARD (FIT-DNA) COLOGUARD (FIT-D NA) [facility] Start: [address] COLONOGRAPHY [facility] Start: 1995 FECAL OCCULT BLOOD FECAL OCCULT BLOO D [facility] Start: 1995 SIGMOIDOSCOPY SIGMOIDOSCOPY [facility] Start: 1990 Mammography MAMMOGRAM [facility] Start: 1969 SHINGRIX VACCINE (1 of 2) SHINGRIX V ACCINE (1 of 2) [facility] Start: 1956 PNEUMOCOCCAL: 65+ (1 - PCV) PNEUMOCOCCAL: 65+ (1 - PCV) [facility] Start: 1950 COVID-19 VACCINE (#1) COVID-19 VACCI NE (#1) [facility] Immunizations Immunization Date Immunization Notes Care Provider Flora hicks 02-02-2011 tetanus and diphther ia toxoids, adsorbed, preservative free, for adult use (2 Lf of tetanus toxoid and 2 Lf of diphtheria toxoid) Sathya Cui [facility] Work Phone: Payers Date Payer Category Payer Unknown [employer] IGO [employer] 2ND [id number] 2020-Present [phone] [address] [place] [address] Indemnity [id number] 2015 Medicare MEDICARE MEDICAR E A AND B [id number] 2015-Present [phone] [place] [address] Medicare [id number] 1959 Medicare [id number] 1950 Unknown [id number] Social History Date Type Detail Facility Start: 05-27-[facility] History of tobacco use Cigarette Smoker C [facility] Start: 05-27-2018 Cigarettes smoked cu rrent (pack per day) - Reported 1 [facility] Start: 05-27-2018 Tobacco use and exposure Smoke less tobacco non-user [facility] Start: 04-09-2019 Alcohol intake Current non-dr rausch of alcohol (finding) [facility] Start: 1950 Sex Assigned At Not on file C [facility] Clinical Note 01-05-2023 Note Date & Type Note Facility 01-05-2023 Note Patient Outreach (REMBERTO TNPB) [place] ([id number]) 1950 F Date Time Provider Department 01/05/23 FABIENNE BOONE During your visit today, we recorded the following information about you: Fabienne Boone MA 01/05/2023 9:42 AM Signed POPULATION HEALTH NAVIGATION OUTREACH Action/ HCCM06.9 - Rheumatoid arthritis involving multiple sites ([facility]) PCP UPDATED Patient Identified by Name and [...] Visit: Population Health Navigation Outreach [3910] Cmt: [facility] GAP Prescriptions as of 01/05/2023 - hydrOXYchloroQUINE [...] Encounter Status:Closed by FABIENNE BOONE on 01/05/23 [facility] Progress note 01-05-2023 Note Date & Type Note Facility 01-05-2023 Note HNO ID: [id number] Author: Fabienne Boone MA Service: ? 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 Type: Progress Notes Filed: 01/05/2023 9:42 AM Note Text: POPULATION HEALTH NAVIGATION OUTREACH Action/ HCCM06.9 - Rheumatoid arthritis involving multiple sites ([facility]) PCP UPDATED Patient Identified by Name and [...] Boone MA January 05, 2023 9:40 AM [facility] History of Present illness Narrative 01-05-2023 Fabienne Boone MA - 01/05/2023 9:40 AM EDT Note Date & Type Note Facility 01-05-2023 History of Presen t illness Narrative POPULATION HEALTH NAVIGATION OUTREACH Action/I HCCM06.9 - Rheumatoid arthritis involving multiple sites ([facility]) PCP UPDATED Patient Identified by Name and [...] 2023 9:40 AM documented in this encounter [facility] Progress note 05-20-2022 Note Date & Type Note Facility 05-20-2022 Note HNO ID: [id number] Author: Sathya HARPER Service: ? Author Type: [...] Cui PSS May 20, 2022 12:16 [facility] 05-20-2022 Note Date & Type Note Facility 05-20-2022 Note Patient Outreach (REMBERTO ESCUDERO) [place] ([id number]) 1950 F Date Time Provider Department 05/20/22 SATHYA CUI ([facility]) [place] During your visit today, we recorded the following information about you: Sathya Cui [facility] 05/20/2022 12:17 PM Signed POPULATION HEALTH NAVIGATION [...] Message Sent to Practice: No Navigation Signature: aSthya Cui [facility] May 20, 2022 12:16 PM Allergies As [...] Encounter Status:Closed by SATHYA MICHEL on 05/20/22 [facility] History of Present illness Narrative 05-20-2022 [...] 2022 12:16 PM documented in this encounter [facility] Summary Purpose Family History No Family History Records FoundNo Family History Records Found Advance Directives No Advanced Directives Records FoundNo Advanced Directives Records Found Additional Source Comments INFORMATION SOURCE (unrecogn ized section and content) DATE CREATED AUTHOR AUTHOR'S ORGANIZ ATION 01/08/2023 [facility] Source Comments (unrecognize d section and content) In the event this informatio n is protected by the Federal Confidentiality of Alcohol and Drug Abuse Patient Records regulations: The Federal rules restrict any use of the information to criminally investigate or prosecute any alcohol or drug abuse patient.[facility] the event this information is protected by the Federal Confidentiality of Alcohol and Drug Abuse Patient Records regulations: The Federal rules restrict any use of the information to criminally investigate or prosecute any alcohol or drug abuse patient.[facility] Reason for Visit (unrecogniz ed section and content) Reason Onset Date Comments Population Health Navigation Outreach 01/05/2023 [facility] Care Teams (unrecognized sec tion and content) Final Coat Sprayer Relationship Specialty Start Date End Date Demetra Allred, DO [address] [place] [address] PCP - General Family Medicine 01/05/23 FOR [...] BE BASED ON THE PRIMARY CLINICAL RECORDS. [employer] [facility]. provides no warranty or guarantee of the accuracy or completeness of information in this document.
[2023-11-27 14:52] VITALS: BP 214/105
== END 2023-11-27 13:23 | disposition home or self-care (01) ==
LOC: MEDOUTP 13:22
PROVIDERS: PCP Family Medicine; Referring Provider Internal Medicine Rheumatology; Visit Provider Internal Medicine Rheumatology
DX: M06.9 Rheumatoid arthritis, unspecified (principal)
CPT/HCPCS: A4216

== ENCOUNTER 2023-12-04 11:52 | Outpatient (CLI) | payer MEDICARE, OTHER, SELFPAY ==
[2023-12-04 12:02] VITALS: BP 125/84; PULSE 73; RESP 16; TEMP 35.9; O2SAT 96
[2023-12-04] MEDS: 0.9% NaCl Peripheral Flush Adult/Peds IV (12:11)
[2023-12-04] MEDS: 0.9% NaCl IVPB Med Flush (250 mL) 15 ML IV (12:39)
[2023-12-04] MEDS: NORMAL SALINE 0.9% IV (12:43)
[2023-12-04] MEDS: ABATACEPT IV (12:43)
[2023-12-04 13:20] VITALS: BP 142/64; PULSE 67; RESP 16
== END 2023-12-04 11:53 | disposition home or self-care (01) ==
LOC: MEDOUTP 11:52
PROVIDERS: PCP Family Medicine; Referring Provider Registered Nurse; Visit Provider Registered Nurse
DX: M06.9 Rheumatoid arthritis, unspecified (principal)
CPT/HCPCS: 96365; J7050; A4216; J0129

== ENCOUNTER 2024-01-15 12:24 | Outpatient (CLI) | payer MEDICARE, OTHER, SELFPAY ==
[2024-01-08 12:00] VITALS: PULSE 65; RESP 16; TEMP 36; O2SAT 96; BMI 19.5
[2024-01-08 12:45] VITALS: BP 185/102; PULSE 60; BMI 19.5
[2024-01-15 12:35] VITALS: BP 159/84; PULSE 61; RESP 16; TEMP 36.3; O2SAT 97; BMI 19.5
[2024-01-15] MEDS: ABATACEPT IV (13:11)
[2024-01-15] MEDS: NORMAL SALINE 0.9% IV (13:11)
[2024-01-15] MEDS: 0.9% NaCl Peripheral Flush Adult/Peds IV (13:13)
[2024-01-15] MEDS: 0.9% NaCl IVPB Med Flush (250 mL) 15 ML IV (13:13)
[2024-01-15 14:00] VITALS: BP 178/86; PULSE 57; RESP 16; TEMP 36.3
== END 2024-01-15 12:25 | disposition home or self-care (01) ==
LOC: MEDOUTP 12:24
PROVIDERS: PCP Family Medicine; Referring Provider Registered Nurse; Visit Provider Registered Nurse
DX: M06.9 Rheumatoid arthritis, unspecified (principal)
CPT/HCPCS: 96365; J7050; A4216; J0129

== ENCOUNTER 2024-02-12 11:25 | Outpatient (CLI) | payer MEDICARE, OTHER, SELFPAY ==
[2024-02-12 11:31] VITALS: BP 171/97; PULSE 61; RESP 16; TEMP 35.6; O2SAT 96
[2024-02-12 11:43] VITALS: BP 183/96; PULSE 57; RESP 16
== END 2024-02-12 11:26 | disposition home or self-care (01) ==
LOC: MEDOUTP 11:26
PROVIDERS: PCP Family Medicine; Referring Provider Registered Nurse; Visit Provider Registered Nurse
DX: M06.9 Rheumatoid arthritis, unspecified (principal)
CPT/HCPCS: 96374

== ENCOUNTER 2024-03-04 12:28 | Outpatient (CLI) | payer MEDICARE, OTHER, SELFPAY ==
[2024-03-04 12:35] VITALS: BP 152/88; PULSE 62; RESP 16; TEMP 36.4; O2SAT 100; BMI 19.5
[2024-03-04] MEDS: ABATACEPT IV (13:02)
[2024-03-04] MEDS: NORMAL SALINE 0.9% IV (13:02)
[2024-03-04] MEDS: 0.9% NaCl IVPB Med Flush (250 mL) 15 ML IV (13:02)
[2024-03-04 13:52] VITALS: BP 141/81; PULSE 58; RESP 16; TEMP 36.5; O2SAT 95
== END 2024-03-04 23:59 | disposition home or self-care (01) ==
LOC: MEDOUTP 12:28
PROVIDERS: PCP Family Medicine; Referring Provider Registered Nurse; Visit Provider Registered Nurse
DX: M06.9 Rheumatoid arthritis, unspecified (principal)
CPT/HCPCS: 96365; J7050; J0129

== ENCOUNTER 2024-04-01 12:23 | Outpatient (CLI) | payer MEDICARE, OTHER, SELFPAY ==
[2024-04-01 12:29] VITALS: BP 114/68; BMI 18.5
[2024-04-01] MEDS: 0.9% NaCl Peripheral Flush Adult/Peds IV (12:48)
[2024-04-01] MEDS: 0.9% NaCl IVPB Med Flush (250 mL) 15 ML IV (12:48)
[2024-04-01] MEDS: ABATACEPT IV (12:54)
[2024-04-01] MEDS: NORMAL SALINE 0.9% IV (12:54)
[2024-04-01 13:51] VITALS: BP 101/58; PULSE 58; RESP 16; TEMP 36.3
== END 2024-04-01 23:59 | disposition home or self-care (01) ==
LOC: MEDOUTP 12:23
PROVIDERS: PCP Family Medicine; Referring Provider Registered Nurse; Visit Provider Registered Nurse
DX: M06.9 Rheumatoid arthritis, unspecified (principal)
CPT/HCPCS: 96365; J7050; A4216; J0129

== ENCOUNTER 2024-04-29 10:24 | Outpatient (CLI) | payer MEDICARE, OTHER, SELFPAY ==
[2024-04-29 10:31] VITALS: BP 151/76; PULSE 63; RESP 16; TEMP 35.8; O2SAT 95
[2024-04-29] MEDS: ABATACEPT IV (11:07)
[2024-04-29] MEDS: 0.9% Normal Saline (100mL Bag) 100 ML 15 ML IV (11:07)
[2024-04-29] MEDS: 0.9% NaCl Peripheral Flush Adult/Peds IV (11:07)
[2024-04-29] MEDS: NORMAL SALINE 0.9% IV (11:07)
[2024-04-29 11:55] VITALS: BP 155/76; PULSE 57; RESP 16; O2SAT 95
== END 2024-04-29 23:59 | disposition home or self-care (01) ==
LOC: MEDOUTP 10:24
PROVIDERS: PCP Family Medicine; Referring Provider Registered Nurse; Visit Provider Registered Nurse
DX: M06.9 Rheumatoid arthritis, unspecified (principal)
CPT/HCPCS: 96365; A4216; J0129

== ENCOUNTER 2024-05-27 11:56 | Outpatient (CLI) | payer MEDICARE, OTHER, SELFPAY ==
[2024-05-27 12:10] VITALS: BP 119/58; PULSE 66; RESP 16; TEMP 35.9; O2SAT 95; BMI 19.5
[2024-05-27] MEDS: NORMAL SALINE 0.9% IV (12:48)
[2024-05-27] MEDS: ABATACEPT IV (12:48)
[2024-05-27 13:45] VITALS: BP 124/65; PULSE 68
== END 2024-05-27 23:59 | disposition home or self-care (01) ==
LOC: MEDOUTP 11:57
PROVIDERS: PCP Family Medicine; Referring Provider Registered Nurse; Visit Provider Registered Nurse
DX: M06.9 Rheumatoid arthritis, unspecified (principal)
CPT/HCPCS: 96365; A4216; J0129

== ENCOUNTER 2024-06-24 11:54 | Outpatient (CLI) | payer MEDICARE, OTHER, SELFPAY ==
[2024-06-24 12:01] VITALS: BP 97/58; PULSE 63; RESP 16; TEMP 36.1; O2SAT 96
[2024-06-24] MEDS: 0.9% NaCl Peripheral Flush Adult/Peds IV (12:15)
[2024-06-24] MEDS: ABATACEPT IV (12:36)
[2024-06-24] MEDS: 0.9% NaCl IVPB Med Flush (250 mL) 15 ML IV (12:36)
[2024-06-24] MEDS: NORMAL SALINE 0.9% IV (12:36)
[2024-06-24 13:25] VITALS: BP 111/66; PULSE 59; RESP 16; O2SAT 97
== END 2024-06-24 23:59 | disposition home or self-care (01) ==
LOC: MEDOUTP 11:55
PROVIDERS: PCP Family Medicine; Referring Provider Registered Nurse; Visit Provider Registered Nurse
DX: M06.9 Rheumatoid arthritis, unspecified (principal)
CPT/HCPCS: 96365; J7050; A4216; J0129

== ENCOUNTER 2024-07-22 11:54 | Outpatient (CLI) | payer MEDICARE, OTHER, SELFPAY ==
[2024-07-22 12:02] VITALS: BP 118/56; PULSE 58; RESP 16; TEMP 36.1; O2SAT 98; BMI 19.5
[2024-07-22] MEDS: 0.9% NaCl Peripheral Flush Adult/Peds IV (12:09)
[2024-07-22] MEDS: ABATACEPT IV (12:29)
[2024-07-22] MEDS: 0.9% Normal Saline (100mL Bag) 100 ML 15 ML IV (12:29)
[2024-07-22] MEDS: NORMAL SALINE 0.9% IV (12:29)
[2024-07-22 13:22] VITALS: BP 130/70; PULSE 56; RESP 16; O2SAT 97
== END 2024-07-22 23:59 | disposition home or self-care (01) ==
PROVIDERS: PCP Family Medicine; Referring Provider Registered Nurse; Visit Provider Registered Nurse
DX: M06.9 Rheumatoid arthritis, unspecified (principal)
CPT/HCPCS: 96365; A4216; J0129

== ENCOUNTER 2024-08-19 11:54 | Outpatient (CLI) | payer MEDICARE, OTHER, SELFPAY ==
[2024-08-19 12:02] VITALS: BP 141/90; PULSE 60; RESP 16; TEMP 36.4; O2SAT 93; BMI 19.1
[2024-08-19] MEDS: 0.9% NaCl Peripheral Flush Adult/Peds IV (12:19)
[2024-08-19] MEDS: ABATACEPT IV (12:29)
[2024-08-19] MEDS: NORMAL SALINE 0.9% IV (12:29)
== END 2024-08-19 23:59 | disposition home or self-care (01) ==
LOC: MEDOUTP 11:54
PROVIDERS: PCP Family Medicine; Referring Provider Registered Nurse; Visit Provider Registered Nurse
DX: M06.9 Rheumatoid arthritis, unspecified (principal)
CPT/HCPCS: 96365; J7040; A4216; J0129

== ENCOUNTER 2024-09-16 11:54 | Outpatient (CLI) | payer MEDICARE, OTHER, SELFPAY ==
[2024-09-16 12:04] VITALS: BP 129/68; PULSE 69; RESP 16; TEMP 36.1; O2SAT 98
[2024-09-16] MEDS: 0.9% NaCl Peripheral Flush Adult/Peds IV (12:07)
[2024-09-16] MEDS: 0.9% NaCl IVPB Med Flush (250 mL) 15 ML IV (12:18)
[2024-09-16] MEDS: ABATACEPT IV (12:26)
[2024-09-16] MEDS: NORMAL SALINE 0.9% IV (12:26)
== END 2024-09-16 23:59 | disposition home or self-care (01) ==
LOC: MEDOUTP 11:55
PROVIDERS: PCP Family Medicine; Referring Provider Registered Nurse; Visit Provider Registered Nurse
DX: M06.9 Rheumatoid arthritis, unspecified (principal)
CPT/HCPCS: 96365; 96361; A4216; J0129

== ENCOUNTER 2024-10-14 11:27 | Outpatient (CLI) | payer MEDICARE, OTHER, SELFPAY ==
[2024-10-14 11:36] VITALS: BP 127/68; PULSE 67; RESP 16; TEMP 36; O2SAT 95
[2024-10-14] MEDS: 0.9% NaCl Peripheral Flush Adult/Peds IV (11:39)
[2024-10-14] MEDS: 0.9% Normal Saline (100mL Bag) 100 ML 15 ML IV (11:49)
[2024-10-14] MEDS: ABATACEPT IV (12:09)
[2024-10-14] MEDS: NORMAL SALINE 0.9% IV (12:09)
[2024-10-14 13:04] VITALS: BP 123/74; PULSE 59; RESP 16
== END 2024-10-14 23:59 | disposition home or self-care (01) ==
LOC: MEDOUTP 11:32
PROVIDERS: PCP Family Medicine; Referring Provider Registered Nurse; Visit Provider Registered Nurse
DX: M06.9 Rheumatoid arthritis, unspecified (principal)
CPT/HCPCS: 96365

== ENCOUNTER 2024-11-11 11:24 | Outpatient (CLI) | payer MEDICARE, OTHER, SELFPAY ==
[2024-11-11 11:47] VITALS: BP 121/71; PULSE 61; RESP 16; O2SAT 97; BMI 18.5
[2024-11-11] MEDS: 0.9% NaCl Peripheral Flush Adult/Peds IV (12:01)
[2024-11-11] MEDS: 0.9% Normal Saline (100mL Bag) 100 ML 15 ML IV (12:06)
[2024-11-11] MEDS: NORMAL SALINE 0.9% IV (12:14)
[2024-11-11] MEDS: ABATACEPT IV (12:14)
[2024-11-11 13:03] VITALS: BP 127/66; PULSE 56; RESP 16
== END 2024-11-11 23:59 | disposition home or self-care (01) ==
LOC: MEDOUTP 11:25
PROVIDERS: PCP Family Medicine; Referring Provider Registered Nurse; Visit Provider Registered Nurse
DX: M06.9 Rheumatoid arthritis, unspecified (principal)
CPT/HCPCS: 96365; A4216; J0129

== ENCOUNTER → 2024-11-28 | Outpatient (CLI) | payer MEDICARE, SELFPAY ==
[2024-11-28 17:45] LABS: Absolute Lymphocyte Count 2.89 X10^3/uL (0.83-4.51); Absolute Neutrophil Count 9.7 X10^3/uL (2.0-7.7); Basophil# 0.09 X10^3/uL; Basophil% 0.7 % (0-1); Eosinophil# 0.21 X10^3/uL; Eosinophils% 1.6 % (0-5); Hematocrit 49.7 % (37-47); Hemoglobin 15.7 g/dL (12.0-15.0); Lymphocyte # 2.89 X10^3/ul (0.83-4.51); Lymphocyte % 21.4 % (19-41); Mean Corp Hgb Conc 31.6 g/dL (32-36); Mean Corpuscular Hgb 27.8 pg (27.0-32.0); Mean Platelet Vol. 9.1 fl (6.2-12.0); Monocyte# 0.58 X10^3/uL; Monocyte% 4.3 % (0-10); NRBC Flagged by Analyzer 0 % (0-5); Neutrophil # 9.67 X10^3/uL (2.7-7.7); Neutrophil % 71.5 % (47-70); Platelet Count 546 K/mm3 (150-450); RBC Distribution Width CV 14.6 % (11.6-14.6); RBC Distribution Width SD 47.1 fl (35.1-43.9); Red Blood Count 5.65 M/mm3 (4.2-5.4); White Blood Count 13.5 K/mm3 (4.4-11.0)
[2024-11-28 18:35] LABS: ALB/GLOB Ratio 0.7 RATIO (0.9-2.4); AST(SGOT) 14 U/L (15-37); Alanine Aminotransfer ALT/SGPT 17 U/L (13-56); Alkaline Phosphatase 113 U/L (45-117); Anion Gap 7 (5-15); BUN 14 mg/dL (7-18); BUN/Creat Ratio 14.8 RATIO (10-20); Calcium,Total 9.5 mg/dL (8.5-10.1); Chloride 103 mmol/L (98-107); Cholesterol 388 mg/dL (200); Creatinine, Serum 0.95 mg/dL (0.55-1.02); EST Glomerular Filtration Rate 61 mL/min (>60); Est Glom Filt Rate - Afr Amer 74 mL/min (>60); Globulin 4.2 g/dL (2.2-4.2); Glucose 101 mg/dL (74-106); High Density Lipoprotein 47 mg/dL; Potassium 4.5 mmol/L (3.5-5.1); Protein, Total 7.2 g/dL (6.4-8.2); Sodium Level 137 mmol/L (136-145); Triglycerides 243 mg/dL; Very Low Density Lipoprotein 49 mg/dL (5-40)
[2024-11-28 18:52] LABS: Vitamin D,25 Hydroxy 32.6 ng/mL
== END | disposition home or self-care (01) ==
LOC: MFPLAB 15:30
PROVIDERS: PCP Family Medicine; Referring Provider Family Medicine; Visit Provider Family Medicine
DX: M06.9 Rheumatoid arthritis, unspecified (principal); I10 Essential (primary) hypertension
CPT/HCPCS: 36415; 80053; 80061; 82306; 85025

== ENCOUNTER 2024-12-09 10:52 | Outpatient (CLI) | payer MEDICARE, OTHER, SELFPAY ==
[2024-12-09 11:11] VITALS: BP 117/62; PULSE 61; RESP 16; TEMP 35.6; O2SAT 94; BMI 19.5
[2024-12-09] MEDS: NORMAL SALINE 0.9% IV (11:44)
[2024-12-09] MEDS: ABATACEPT IV (11:44)
[2024-12-09 12:36] VITALS: BP 121/85; PULSE 62; RESP 16; TEMP 36.4; O2SAT 95
== END 2024-12-09 23:59 | disposition home or self-care (01) ==
LOC: MEDOUTP 10:52
PROVIDERS: PCP Family Medicine; Referring Provider Registered Nurse; Visit Provider Registered Nurse
DX: M06.9 Rheumatoid arthritis, unspecified (principal)
CPT/HCPCS: 96365; A4216; J0129

== ENCOUNTER → 2024-12-15 | Outpatient (CLI) | payer MEDICARE, OTHER, SELFPAY ==
--- NOTE | 2024-12-15 15:28 | BD_ITS ---
PROCEDURE: DEXA BONE DENSITY STUDY REASON FOR EXAM: F, age 74 y/o . Postmenopausal. TECHNIQUE: DEXA scan of the lumbar spine and right hip. COMPARISON: Comparison is made with prior study dated September 02, 2022. FINDINGS: Lumbar Spine (L1-L4): g/cm2 (0.731)/T-score (-2.6)/Z-score (-0.2) findings are suggestive of osteoporotic with a high fracture risk. Right Femur Total: g/cm2 (0.660)/T-score (-2.3)/Z-score (-0.5) Right Femoral Neck: g/cm2 (0.548)/T-score (-2.3)/Z-score (-0.7) The T-Scores on the most recent prior examination were: Lumbar Spine (L1-L4): There has been worsening of bone density since the previous examination. Left Femur Total: Improvement of 7.8%. BD/Dexa Bone Density Study IMPRESSION: The patient is considered osteoporotic as outlined below according to World Hea th Organization (WHO) criteria with a high fracture risk. There has been worsening of bone density since the previous exa mination. Reading Location: [facility]
== END | disposition home or self-care (01) ==
LOC: OPBD 15:24
PROVIDERS: PCP Family Medicine; Referring Provider Family Medicine; Visit Provider Family Medicine
DX: Z78.0 Asymptomatic menopausal state (principal)
CPT/HCPCS: 77080

== ENCOUNTER 2025-01-05 13:53 | Outpatient (CLI) | payer MEDICARE, OTHER, SELFPAY ==
[2025-01-05 13:58] VITALS: BP 113/68; PULSE 65; RESP 16; TEMP 35.6
[2025-01-05] MEDS: 0.9% NaCl Peripheral Flush Adult IV (14:05)
[2025-01-05] MEDS: NORMAL SALINE 0.9% IV (14:35)
[2025-01-05] MEDS: 0.9% NaCl IVPB Med Flush (100mL) 15 ML IV (14:35)
[2025-01-05] MEDS: ABATACEPT IV (14:35)
[2025-01-05 15:31] VITALS: BP 112/64; PULSE 59; RESP 16; TEMP 36
== END 2025-01-05 23:59 | disposition home or self-care (01) ==
LOC: MEDOUTP 13:53
PROVIDERS: PCP Family Medicine; Referring Provider Registered Nurse; Visit Provider Registered Nurse
DX: M06.9 Rheumatoid arthritis, unspecified (principal)
CPT/HCPCS: 96365; A4216; J0129

== ENCOUNTER 2025-02-02 14:24 | Outpatient (CLI) | payer MEDICARE, OTHER, SELFPAY ==
[2025-02-02 14:45] VITALS: BP 154/79; PULSE 60; RESP 16; TEMP 35.9; O2SAT 95
[2025-02-02] MEDS: 0.9% NaCl Peripheral Flush Adult IV (14:48)
[2025-02-02] MEDS: 0.9% NaCl IVPB Med Flush (100mL) 15 ML IV (14:53)
[2025-02-02] MEDS: ABATACEPT IV (15:01)
[2025-02-02] MEDS: NORMAL SALINE 0.9% IV (15:01)
[2025-02-02 15:49] VITALS: BP 177/79; PULSE 62; RESP 16; TEMP 36.3; O2SAT 98
== END 2025-02-02 23:59 | disposition home or self-care (01) ==
LOC: MEDOUTP 14:24
PROVIDERS: PCP Family Medicine; Referring Provider Registered Nurse; Visit Provider Registered Nurse
DX: M06.9 Rheumatoid arthritis, unspecified (principal)
CPT/HCPCS: 96365; A4216; J0129

== ENCOUNTER 2025-03-02 14:25 | Outpatient (CLI) | payer MEDICARE, OTHER, SELFPAY ==
[2025-03-02 14:39] VITALS: BP 117/73; PULSE 67; RESP 16; O2SAT 94; BMI 19.5
[2025-03-02] MEDS: 0.9% NaCl IVPB Med Flush (100mL) 15 ML IV (14:42)
[2025-03-02] MEDS: 0.9% NaCl Peripheral Flush Adult IV (14:42)
[2025-03-02] MEDS: ABATACEPT IV (15:09)
[2025-03-02] MEDS: NORMAL SALINE 0.9% IV (15:09)
[2025-03-02 16:03] VITALS: BP 131/73; PULSE 59; RESP 16; TEMP 35.5; O2SAT 93
== END 2025-03-02 23:59 | disposition home or self-care (01) ==
LOC: MEDOUTP 14:26
PROVIDERS: PCP Family Medicine; Referring Provider Registered Nurse; Visit Provider Registered Nurse
DX: M06.9 Rheumatoid arthritis, unspecified (principal)
CPT/HCPCS: 96365; A4216; J0129

== ENCOUNTER 2025-03-30 12:21 | Outpatient (CLI) | payer MEDICARE, OTHER, SELFPAY ==
[2025-03-30 12:40] VITALS: BP 138/81; PULSE 63; RESP 16; TEMP 35.6; O2SAT 93
[2025-03-30] MEDS: 0.9% NaCl Peripheral Flush Adult IV (12:53)
[2025-03-30] MEDS: 0.9% NaCl IVPB Med Flush (100mL) 15 ML IV (12:54)
[2025-03-30] MEDS: NORMAL SALINE 0.9% IV (13:25)
[2025-03-30] MEDS: ABATACEPT IV (13:25)
[2025-03-30 14:14] VITALS: BP 150/82; PULSE 61; RESP 16; TEMP 35.9; O2SAT 97
== END 2025-03-30 23:59 | disposition home or self-care (01) ==
LOC: MEDOUTP 12:22
PROVIDERS: PCP Family Medicine; Referring Provider Registered Nurse; Visit Provider Registered Nurse
DX: M06.9 Rheumatoid arthritis, unspecified (principal)
CPT/HCPCS: 96365; A4216; J0129

== ENCOUNTER 2025-05-01 13:54 | Outpatient (CLI) | payer MEDICARE, OTHER, SELFPAY ==
[2025-05-01 14:06] VITALS: BP 141/81; PULSE 63; RESP 16; TEMP 35.7; O2SAT 97; BMI 19.1
[2025-05-01] MEDS: ABATACEPT IV (14:39)
[2025-05-01] MEDS: 0.9% NaCl Peripheral Flush Adult IV (14:39)
[2025-05-01] MEDS: NORMAL SALINE 0.9% IV (14:39)
[2025-05-01] MEDS: 0.9% NaCl IVPB Med Flush (100mL) 15 ML IV (14:39)
[2025-05-01 15:31] VITALS: BP 154/85; PULSE 59; RESP 16; TEMP 36; O2SAT 97
== END 2025-05-01 23:59 | disposition home or self-care (01) ==
LOC: MEDOUTP 13:54
PROVIDERS: PCP Family Medicine; Referring Provider Registered Nurse; Visit Provider Registered Nurse
DX: M06.9 Rheumatoid arthritis, unspecified (principal)
CPT/HCPCS: 96365; A4216; J0129

== ENCOUNTER 2025-05-29 13:54 | Outpatient (CLI) | payer MEDICARE, OTHER, SELFPAY ==
[2025-05-29 14:03] VITALS: BP 96/32; PULSE 67; RESP 16; TEMP 35.7; O2SAT 98; BMI 18.5
[2025-05-29] MEDS: 0.9% NaCl IVPB Med Flush (250 mL) 15 ML IV (14:10)
[2025-05-29] MEDS: 0.9% NaCl Peripheral Flush Adult IV (14:10)
[2025-05-29] MEDS: NORMAL SALINE 0.9% IV (14:33)
[2025-05-29] MEDS: ABATACEPT IV (14:33)
[2025-05-29 15:23] VITALS: BP 130/70; PULSE 58
== END 2025-05-29 23:59 | disposition home or self-care (01) ==
LOC: MEDOUTP 13:54
PROVIDERS: PCP Family Medicine; Referring Provider Registered Nurse; Visit Provider Registered Nurse
DX: M06.9 Rheumatoid arthritis, unspecified (principal)
CPT/HCPCS: 96365; A4216; J0129

== ENCOUNTER 2025-06-26 14:25 | Outpatient (CLI) | payer MEDICARE, OTHER, SELFPAY ==
[2025-06-26] MEDS: 0.9% NaCl IVPB Med Flush (100mL) 15 ML IV (14:42)
[2025-06-26 14:49] VITALS: BP 134/68; PULSE 61; RESP 16; TEMP 35.8; O2SAT 98; BMI 19.1
[2025-06-26] MEDS: ABATACEPT IV (14:54)
[2025-06-26] MEDS: NORMAL SALINE 0.9% IV (14:54)
[2025-06-26 15:29] VITALS: BP 131/74; PULSE 63; RESP 16; TEMP 36.2; O2SAT 98
== END 2025-06-26 23:59 | disposition home or self-care (01) ==
LOC: MEDOUTP 14:26
PROVIDERS: PCP Family Medicine; Referring Provider Registered Nurse; Visit Provider Registered Nurse
DX: M06.9 Rheumatoid arthritis, unspecified (principal)
CPT/HCPCS: 96365; J0129

== ENCOUNTER 2025-07-24 13:53 | Outpatient (CLI) | payer MEDICARE, OTHER, SELFPAY ==
[2025-07-24 14:12] VITALS: BP 117/63; PULSE 63; RESP 16; TEMP 36.2; O2SAT 97; BMI 19.1
[2025-07-24] MEDS: ABATACEPT IV (14:47)
[2025-07-24] MEDS: 0.9% NaCl Peripheral Flush Adult IV (14:47)
[2025-07-24] MEDS: NORMAL SALINE 0.9% IV (14:47)
[2025-07-24] MEDS: 0.9% NaCl IVPB Med Flush (100mL) 15 ML IV (14:47)
[2025-07-24 15:22] VITALS: BP 151/77; PULSE 58; RESP 16; TEMP 36.3; O2SAT 97
== END 2025-07-24 23:59 | disposition home or self-care (01) ==
LOC: MEDOUTP 13:53
PROVIDERS: PCP Family Medicine; Referring Provider Registered Nurse; Visit Provider Registered Nurse
DX: M06.9 Rheumatoid arthritis, unspecified (principal)
CPT/HCPCS: 96365; A4216; J0129

== ENCOUNTER 2025-08-21 12:55 | Outpatient (CLI) | payer MEDICARE, OTHER, SELFPAY ==
[2025-08-21 13:06] VITALS: BP 118/69; PULSE 68; RESP 16; TEMP 35.8; O2SAT 94; BMI 19.7
[2025-08-21] MEDS: 0.9% NaCl Peripheral Flush Adult IV (13:19)
[2025-08-21] MEDS: 0.9% NaCl IVPB Med Flush (100mL) 15 ML IV (13:19)
[2025-08-21] MEDS: ABATACEPT IV (13:39)
[2025-08-21] MEDS: NORMAL SALINE 0.9% IV (13:39)
[2025-08-21 14:27] VITALS: BP 122/71; PULSE 58; RESP 16; TEMP 35.8; O2SAT 95
== END 2025-08-21 23:59 | disposition home or self-care (01) ==
LOC: MEDOUTP 12:56
PROVIDERS: PCP Family Medicine; Referring Provider Registered Nurse; Visit Provider Registered Nurse
DX: M06.9 Rheumatoid arthritis, unspecified (principal)
CPT/HCPCS: 96365; A4216; J0129

== ENCOUNTER 2025-09-19 13:29 | Outpatient (CLI) | payer MEDICARE, OTHER, SELFPAY ==
[2025-09-19 13:34] VITALS: BP 132/65; PULSE 64; RESP 16; O2SAT 96; BMI 19.7
[2025-09-19] MEDS: NORMAL SALINE 0.9% IV (14:22)
[2025-09-19] MEDS: ABATACEPT IV (14:22)
[2025-09-19 15:10] VITALS: BP 156/81; PULSE 63; RESP 16; O2SAT 95
== END 2025-09-19 23:59 | disposition home or self-care (01) ==
LOC: MEDOUTP 13:30
PROVIDERS: PCP Family Medicine; Referring Provider Registered Nurse; Visit Provider Registered Nurse
DX: M06.9 Rheumatoid arthritis, unspecified (principal)
CPT/HCPCS: 96365; J0129